=== PATIENT | male | born 1945 | race African-American/Black ===

== ENCOUNTER 2020-08-24 06:45 | Inpatient (IN) | payer OTHER ==
--- NOTE | 2019-09-06 19:30 | NUR ---
PATIENT ENDORSED IN PRONE POSITION TO UNSTABLE TO ROTATE IN SUPINE BLOOD PRESSURE WITH SUPPORT OF LEVOPHED DOCUMENTED , Addendum: 09/07/20 at 0835 by Agency Walter GREENE RN NO FEEDING STARTED STILL PRONE
[~2020-08-24] VITALS: Ht 180.3 cm; Wt 110.7 kg
[2020-08-24 06:45] VITALS: BP 133/72
--- NOTE | 2020-08-24 06:45 | NUR ---
75 Y/O MALE BIBA FROM HOME C/O SOB & FLU LIKE SYMPTOMS X 2 DAYS. PER EMS PT HAS BEEN PROGRESSIVELY HARDER TO BREATHE. ON SITE PT OXYGEN LEVEL 55% , PT PLACED ON CPAP ON SITE SAO2 66%. PT ABLE TO FOLLOW COMMANDS. A/O X 3, SLIGHT CONFUSION. RR EVEN AND LABORED, LUNG SOUNDS BL DIMINISHED. CAP REFIL < 3 SEC. PMH: HTN, DM NKA
--- NOTE | 2020-08-24 07:16 | NUR ---
BLOOD LABS & CULTURES COLLECTED. FLU & COVID BEA SWABS COLLECTED AND GIVEN TO LAB.
--- NOTE | 2020-08-24 07:20 | NUR ---
REPORT GIVEN TO RAMONA DOVER FOR CONTINUATION OF CARE.
--- NOTE | 2020-08-24 07:21 | NUR ---
Report reveived from RAMONA Ocampo for continuity of care
[2020-08-24] MEDS ORDERED: DEXAMETHASONE 10 MG/ML VIAL IVP ONE (07:35)
[2020-08-24] MEDS ORDERED: AZITHROMYCIN 500 MG in DEXTROSE 5% 250 ML IV ONE (07:35)
[2020-08-24] MEDS ORDERED: METF1000 PO (07:40)
[2020-08-24] MEDS ORDERED: SIMV10TA1 PO (07:40)
[2020-08-24] MEDS ORDERED: AMLO10TA PO (07:40)
[2020-08-24] MEDS ORDERED: TAMS0.4C97 PO (07:40)
[2020-08-24 08:09] LABS: BASOPHILS # (AUTO) 0.1 K/uL (0.00-0.22); BASOPHILS % (AUTO) 0.6 % (0.0-2.0); EOSINOPHILS % (AUTO) 0.1 % (0.0-4.0); HEMATOCRIT 44.5 % (36-52); HEMOGLOBIN 14.1 g/dL (12.0-18.0); LYMPHOCYTES # (AUTO) 1.6 K/uL (2.0-11.5); LYMPHOCYTES % (AUTO) 7.6 % (20.5-51.1); MEAN CORPUSCULAR HEMOGLOBIN 26 pg (27-31); MEAN CORPUSCULAR HGB CONC 32 g/dL (33-37); MEAN CORPUSCULAR VOLUME 83.2 fL (80-94); MONOCYTES % (AUTO) 5.1 % (1.7-9.3); NEUTROPHILS # (AUTO) 17.7 K/uL (1.8-7.7); NEUTROPHILS % (AUTO) 86.6 % (42.2-75.2); PLATELET COUNT (AUTO) 230 K/uL (140-450); RED BLOOD CELL COUNT(AUTO) 5.34 MIL/uL (4.20-6.10); RED CELL DISTRIBUTION WIDTH 14.8 % (11.6-13.7); WHITE BLOOD COUNT (AUTO) 20.5 K/uL (4.8-10.8)
[2020-08-24] MEDS ORDERED: AZITHROMYCIN 500 MG INJ VIAL IV ONE (08:14)
[2020-08-24] MEDS ORDERED: cefTRIAXone 1,000 MG VIAL ONE (08:15)
[2020-08-24 08:25] LABS: LACTATE DEHYDROGENASE 869 U/L (85-227)
[2020-08-24 08:26] LABS: PROTHROMBIN TIME 10.8 secs (10.8-13.4)
[2020-08-24 08:30] LABS: C-REACTIVE PROTEIN QUANT 52.4 mg/dL (0.0-0.9)
--- NOTE | 2020-08-24 08:30 | NUR ---
Dr. Membreno at bedside, will call RT for larger facem mask for BIPAP or adjustment
[2020-08-24 08:32] LABS: ALBUMIN 3.1 g/dL (3.4-5.0); ANION GAP 31.5 (8-16); ASPARTATE AMINOTRANSFERASE 51 U/L (15-37); CARBON DIOXIDE 16.4 mmol/L (21-32); CHLORIDE 102 mmol/L (98-107); GLUCOSE 264 mg/dL (74-106); POTASSIUM 4.9 mmol/L (3.5-5.1); SODIUM SERUM 145 mmol/L (136-145); TOTAL BILIRUBIN 0.6 mg/dL (0.0-1.0)
[2020-08-24 08:35] LABS: UREA NITROGEN, BLOOD 66 mg/dL (7-18)
[2020-08-24 08:36] LABS: CREATININE 4.9 mg/dL (0.6-1.3)
--- NOTE | 2020-08-24 08:36 | NUR ---
CRITICAL LAB REPORTS: BUN:66, CREAT 4.6, 12 Addendum: 08/24/20 at 0836 by [email or web address] CRITICAL LAB REPORTS: BUN:66, CREAT 4.6, 12 REPORTED TO KARLENE JIMENEZ
[2020-08-24 08:38] LABS: FIBRINOGEN 875 mg/dL (200-400)
--- NOTE | 2020-08-24 08:40 | NUR ---
RT Hedrick at bedside to adjust jonh's BIPAP face mask, O2 sat 77-83%. Patient breathing around the mask
[2020-08-24 08:50] LABS: D-DIMER > 5000 ng/ml (0-400)
[2020-08-24] MEDS ORDERED: NACL 0.9% 1,000 ML IV ONE ×2 (08:50→09:05)
--- NOTE | 2020-08-24 10:07 | NUR ---
Patient able to give urine sample, dipped, charted and sent to lab for UA and C&S
[2020-08-24] MEDS ORDERED: HYDROcodone/APAP 5/325 MG 1 TAB TAB PO PRN (11:20)
[2020-08-24] MEDS ORDERED: HEPARIN PER PHARMACY MC PRN (11:20)
[2020-08-24] MEDS ORDERED: POTASSIUM CHLORIDE 10 MEQ TABER PO PRN (11:20)
[2020-08-24] MEDS ORDERED: KCL 20 MEQ/WATER INJ PREMIX 200 ML IV PRN (11:20)
[2020-08-24] MEDS ORDERED: MAG SULF 2000 MG/WATER PREMIX 50 ML IV PRN (11:20)
[2020-08-24] MEDS ORDERED: MAGNESIUM OXIDE 400 MG TAB PO PRN (11:20)
[2020-08-24] MEDS ORDERED: ONDANSETRON 4 MG/2 ML VIAL IVP PRN (11:20)
[2020-08-24] MEDS ORDERED: NACL 0.9% 1,000 ML IV SCH (11:20)
[2020-08-24] MEDS ORDERED: MORPHINE SULFATE 4 MG/ML SYR IVP PRN (11:20)
[2020-08-24] MEDS ORDERED: ETOMIDATE 20 MG/10 ML VIAL IVP ONE (12:00)
--- NOTE | 2020-08-24 12:22 | NUR ---
Dr. Zapata is evaluating the patient at bedside.
[2020-08-24 12:38] LABS: APPEARANCE,URINE CLOUDY (CLEAR); BILIRUBIN,URINE 1+ (NEGATIVE); BLOOD, URINE NEGATIVE (NEGATIVE); COLOR,URINE YELLOW (YELLOW); LEUKOCYTE ESTERASE ,URINE NEGATIVE (NEGATIVE); NITRITE, URINE NEGATIVE (NEGATIVE); UGLUCOSE NEGATIVE (NEGATIVE)
[2020-08-24 12:59] LABS: RBC,URINE NONE SEEN /HPF (0-5)
[2020-08-24 13:00] LABS: URINE AMORPHOUS URATE 3+ /HPF (None Seen)
[2020-08-24] MEDS ORDERED: PIPERACILLIN/TAZOBACTAM 2.25 GM VIAL IV ONE (13:11)
--- NOTE | 2020-08-24 13:20 | NUR ---
Dr. Meneses is evaluating the patient at bedside.
[2020-08-24] MEDS: PIPERACILLIN/TAZOBACTAM 2.25 GM in DEXTROSE 5% 50 ML IV SCH ×2 (13:46→21:00)
--- NOTE | 2020-08-24 14:08 | NUR ---
CALLED DR. LAI WASHBURN [phone] TO REVIEW ABG SAMPLE REPORT LUCÍA (OFFICE) TO PAGE FOREMENTIONED CALL BACK NUMBER GIVEN [phone]
--- NOTE | 2020-08-24 14:32 | NUR ---
CALL BACK FROM DR. WASHBURN CALL TAKEN BY RADHA GERMAN TUTOR RESULTS GIVEN TO NO NEW ORDER
[2020-08-24] MEDS: SODIUM BICARBONATE 8.4% 50 MEQ in NACL 0.45% 1,000 ML IV SCH ×2 (14:45→21:29)
--- NOTE | 2020-08-24 15:28 | NUR ---
Returned call to patient's daughter Shivani Mendez [phone]
--- NOTE | 2020-08-24 15:47 | NUR ---
*FAMILY CONTACT* Louise Mendez [phone], updated re: patient's condition and plan PCP of patient Dr. Whittington In in [facility] [phone]
[2020-08-24] MEDS: hePARIN / DEXT 5% PREMIX 250 ML IV SCH (16:02)
--- NOTE | 2020-08-24 16:41 | NUR ---
Dr. Ruiz returned call, re: patient O2 sat contistantly at 77-82& Addendum: 08/24/20 at [email or web address] Ruiz stated he would call Dr. Meneses and have him address issue and possibly intubate
--- NOTE | 2020-08-24 16:45 | NUR ---
Robert genao in ED - 08/24/20 at [email or web address] Ruggiero took patient off O2 to see response
--- NOTE | 2020-08-24 17:01 | NUR ---
Patient given Morphine 4mg IVP for sedation and dyspnea
[2020-08-24] MEDS ORDERED: DEXMEDETOMIDINE HCL 200 MCG in NACL 0.9% 48 ML IV PRN (17:05)
--- NOTE | 2020-08-24 17:07 | NUR ---
Robert genao in [facility] - 08/24/20 at 1715 by [email or web address] Patient off O2, O2 sat on room air 92-93%
[2020-08-24] MEDS ORDERED: DEXMEDETOMIDINE HCL 400 MCG in NACL 0.9% 96 ML IV PRN (17:30)
--- NOTE | 2020-08-24 17:50 | NUR ---
#16F mascorro catheter placed, patient tolerated well. Pulled up in bed and changed into gown O2 sat 87-89%
--- NOTE | 2020-08-24 18:32 | NUR ---
Patient resting comfortably, HOB elevated 90. Resp even and unlabored, O2 sat 96-97%. F/C draining well, VVS, sinus rhythm-ST
--- NOTE | 2020-08-24 19:10 | NUR ---
Detailed report given to RAMONA Weathers for plant operator/shift supervisor. Questions answered, meds and orders reviewed.
[2020-08-24] MEDS ORDERED: DEXTROSE 50% 50 ML SYR IVP PRN (19:25)
--- NOTE | 2020-08-24 19:30 | NUR ---
REPORT RECEIVED FROM REBAR WORKER RAY AND ASSUMED CARE.
[2020-08-24] MEDS: ASCORBIC ACID 500 MG TAB PO SCH (21:00)
[2020-08-24] MEDS: BLOOD GLUCOSE MONITORING 1 DEV DEV FS SCH (21:00)
--- NOTE | 2020-08-24 22:00 | NUR ---
PT REQUESTED WATER. PT WAS ABLE TO DRINK WATER WITH NO ISSUES.
--- NOTE | 2020-08-24 22:10 | NUR ---
LAB AT BEDSIDE DRAWING LABS FOR PT
[2020-08-24] MEDS ORDERED: PIPERACILLIN/TAZOBACTAM 3.375 GM VIAL IV ONE (22:57)
--- NOTE | 2020-08-25 00:21 | NUR ---
PT STARTED TO DESAT. BIPAP MASK WAS NOT ON PROPERLY. ASSISTED PT TO A COMFORTABLE FIT. O2 LEVELS CAME UP.
--- NOTE | 2020-08-25 02:14 | NUR ---
PT RESTING IN BED WITH FLUIDS RUNNING PER MD ORDERS. CHEST RISE AND FALL SYMMETRICAL. VSS. PT ON BIPAP
--- NOTE | 2020-08-25 04:59 | NUR ---
PT IN BED AT THIS TIME. NO DISTRESS NOTED. BIPAP MASK ON, O2 LEVELS AT 98%. SIDE RAILS UP AND BED IN LOWEST POSITION FOR SAFETY
[2020-08-25] MEDS: PIPERACILLIN/TAZOBACTAM 2.25 GM in DEXTROSE 5% 50 ML IV SCH ×3 (05:00→22:20)
[2020-08-25 05:54] LABS: HEMATOCRIT 39.2 % (36-52); HEMOGLOBIN 12.7 g/dL (12.0-18.0); LYMPHOCYTES # (AUTO) 0.6 K/uL (2.0-11.5); LYMPHOCYTES % (AUTO) 2.8 % (20.5-51.1); MEAN CORPUSCULAR HEMOGLOBIN 26 pg (27-31); MEAN CORPUSCULAR HGB CONC 32 g/dL (33-37); MEAN CORPUSCULAR VOLUME 80.8 fL (80-94); MONOCYTES # (AUTO) 1.1 K/uL (0.8-1.0); MONOCYTES % (AUTO) 5.5 % (1.7-9.3); NEUTROPHILS # (AUTO) 18.2 K/uL (1.8-7.7); NEUTROPHILS % (AUTO) 91.7 % (42.2-75.2); PLATELET COUNT (AUTO) 226 K/uL (140-450); RED BLOOD CELL COUNT(AUTO) 4.85 MIL/uL (4.20-6.10); RED CELL DISTRIBUTION WIDTH 14.4 % (11.6-13.7); WHITE BLOOD COUNT (AUTO) 19.9 K/uL (4.8-10.8)
[2020-08-25 06:04] LABS: ALBUMIN 2.4 g/dL (3.4-5.0); ANION GAP 18.5 (8-16); ASPARTATE AMINOTRANSFERASE 52 U/L (15-37); CARBON DIOXIDE 24.5 mmol/L (21-32); CHLORIDE 110 mmol/L (98-107); CHOL/HDL RATIO 3.4 (1-4.5); CREATININE 2.7 mg/dL (0.6-1.3); GLUCOSE 254 mg/dL (74-106); HDL CHOLESTEROL 39 mg/dL (40-60); LDL (CALC) 63 mg/dL (60-100); SODIUM SERUM 148 mmol/L (136-145); TOTAL BILIRUBIN 0.4 mg/dL (0.0-1.0); TRIGLYCERIDES 151 mg/dL (30-150); UREA NITROGEN, BLOOD 60 mg/dL (7-18)
--- NOTE | 2020-08-25 06:11 | NUR ---
PTT 56.5-PRIMARY NURSE EDWARD NOTIFIED-WILL FOLLOW HEPARIN PROTOCOL- NO CHANGE TO HEPARIN DRIP NEEDED PER HEPARIN PROTOCOL
[2020-08-25] MEDS ORDERED: SODIUM BICARBONATE 8.4% PFS 50 MEQ/50 ML SYR IVP ONE ×2 (06:16→06:18)
[2020-08-25] MEDS: SODIUM BICARBONATE 8.4% 50 MEQ in NACL 0.45% 1,000 ML IV SCH (06:42)
[2020-08-25] MEDS: BLOOD GLUCOSE MONITORING 1 DEV DEV FS SCH ×4 (06:44→22:19)
--- NOTE | 2020-08-25 07:30 | NUR ---
RECEIVED REPORT FROM RAMONA LEON.
--- NOTE | 2020-08-25 07:40 | NUR ---
PT REPOSITIONED UP BED INTO POSITION OF COMFORT. FACIAL CARE PROVIDED. EQUAL CHEST RISE AND FALL. BED LOCKED AT LOWEST POSITION. SIDE RAILS X2. CALL LIGHT WITHIN REACH.
[2020-08-25] MEDS: DOCUSATE SODIUM 100 MG GELCAP PO SCH (08:47)
--- NOTE | 2020-08-25 09:00 | NUR ---
1200ML OF EDWARD URINE REMOVED AND DISCARDED FROM CATHETER BAG
[2020-08-25] MEDS: DEXAMETHASONE 4 MG/ML VIAL IVP SCH (09:04)
[2020-08-25] MEDS: ASCORBIC ACID 500 MG TAB PO SCH ×2 (09:05→22:20)
--- NOTE | 2020-08-25 10:04 | NUR ---
PATIENT HAS BEEN SCREENED AND CATEGORIZED MODERATE NUTRITION RISK. PATIENT WILL BE SEEN WITHIN 3-5 DAYS OF ADMISSION. 08/27/20-08/29/[address]
--- NOTE | 2020-08-25 10:31 | NUR ---
PT REPOSITIONED IN BED IN HIGH FOWLERS POSITION. BEDSIDE MONITOR IN PLACE. BED LOCKED AND IN LOWEST POSITION. SIDE RAILS X2.
--- NOTE | 2020-08-25 10:49 | NUR ---
RT AND LAB AT BEDSIDE
[2020-08-25 10:50] VITALS: BP 123/71
[2020-08-25] MEDS: INSULIN LISPRO SLIDING SCALE 100 UNITS/ML VIAL SUBQ PRN ×2 (12:34→17:30)
[2020-08-25] MEDS: NACL 0.45% 1,000 ML IV SCH (12:56)
--- NOTE | 2020-08-25 12:58 | NUR ---
PT REPOSITIONED IN BED. GIVEN ORANGE JUICE PER REQUEST. FACE CLEANED WITH MOIST WASHCLOTH. MANAGER MOTOR IN PLACE, BED LOCKED AND IN LOWEST POSITON. SIDE RAILS X2. CALL LIGHT IN REACH. ALL PT NEEDS MET AT THIS TIME.
[2020-08-25] MEDS ORDERED: PIPERACILLIN/TAZOBACTAM 2.25 GM VIAL IV ONE ×2 (13:11→22:04)
--- NOTE | 2020-08-25 13:30 | NUR ---
PTT NOW 48.9, NO CHANGE IN HEPARIN DRIP MADE.
--- NOTE | 2020-08-25 14:25 | NUR ---
RT AT BEDSIDE FOR O2 DESAT.
--- NOTE | 2020-08-25 14:30 | NUR ---
PT REPOSITIONED IN BED WITH BIPAP IN PLACE. PHYSICIAN INDUSTRIAL/PULSE OX IN PLACE. BED LOCKED AND IN LOWEST POSITION. SIDE RAILS X2. CALL LIGHT IN REACH.
[2020-08-25 15:30] VITALS: BP 115/68
--- NOTE | 2020-08-25 15:34 | NUR ---
SPOKE WITH DR. SCHULTE REGARDING PRN ATIVAN FOR ANXIETY.
--- NOTE | 2020-08-25 15:36 | NUR ---
SOCIAL WORK NOTE: SW WAS UNABLE TO MEET PATIENT AT BEDSIDE DUE TO MEDICAL CONDITION. [facility] CONTACTED EMERGENCY CONTACT TALYA [phone] AND LEFT VM TO COMPLETE ASSESSMENT. Addendum: 08/26/20 at 1050 by Antony English SS Patient's Orientation Unable To Assess Information Provided By MAREK HANSEN - / TALYA MAR - DAUGHTER Comments SW WAS UNABLE TO MEET PATIENT AT BEDSIDE DUE TO MEDICAL CONDITION. SW COMPLETED ASSESSMENT WITH PATIENT'S AND DAUGHTER TELEPHONICALLY. Rock Lather, Realtionship and Phone Number MAREK HANSEN [phone] TALYA MAR DAUGHTER [phone] Healthcare Power of Trichologist No Does Patient Have a POLST No Identifying Problems No Social Work Triggers Is A Social Work Consult Needed No Mandate Report Filed No Explanation Of Identifying Problems PATIENT IS A 75-YEAR-OLD MALEADMITTED FOR COVID, PNEUMONIA, AND SEPSIS. PATIENT HAS PMHX OF HTN, DM, AND BPH. FAMILY REPORTS NO HISTORY OF SUBSTANCE ABUSE OR MENTAL HEALTH. Admitted From Home Pre-Admission Level Of Functioning Status Independent/Ambulatory Prior Resources/Services Used In Last 12 Months No Prior Resources Used Prior DME No Prior DME Used Dialysis Comments N/A Living Situation Lives With Family House Patient Had Caregiver No Home Support No Caregiver Issues Financial Issues No Known Financial Issue Referral To The Financial Counselor Needed Yes Factors/Needs No D/C Needs Identified Pt/Rep Participated In Discharge Plan Yes Patient/Family Agress With Discharge Plan Yes Discharge Plan Comments TENTATIVE DISCHARGE PLAN IS FOR PATIENT TO RETURN HOME. DC Plan Status Initiated
[2020-08-25] MEDS ORDERED: INTUBATION KIT MC ONE (15:56)
--- NOTE | 2020-08-25 16:30 | NUR ---
ORDER PICKER DR. WEBSTER MADE AWARE OF PTS PERSISTENT DESATS ON BIPAP MACHINE DUE TO RESTLESSNESS/ANXIETY. DR. KEENAN STATED TO GIVE PRN PRECEDEX DRIP FOR PTS ANXIETY.
--- NOTE | 2020-08-25 17:36 | NUR ---
PAGED DR. KEENAN TO MAKE AWARE THAT PT IS 75%-80% ON BIPAP MACHINE WITH PRECEDEX DRIP.
[2020-08-25] MEDS ORDERED: LORazepam 2 MG/ML VIAL ONE (17:42)
--- NOTE | 2020-08-25 17:42 | NUR ---
PT DESAT TO 28% ON BIPAP, ERMD DR. JIMENEZ AND RT AT BEDSIDE FOR RAPID RESPONSE INTUBATION. SEE EMAR FOR MEDICATION ADMINISTRATION.
--- NOTE | 2020-08-25 17:42 | NUR ---
Note undone in [facility] - 08/25/20 at 1944 by [email or web address] PT DESAT TO 28% ON BIPAP, KARLENE JIMENEZ AT BEDSIDE FOR RAPID RESPONSE INTUBATION. Addendum: 08/25/20 at 1816 by [email or web address] Amendment undone in [facility] - 08/25/20 at 1820 by [email or web address] PT DESAT TO 28% ON BIPAP, KARLENE JIMENEZ AND RT AT BEDSIDE FOR RAPID RESPONSE INTUBATION. SEE EMAR FOR MEDICATION ADMINISTRATION.
[2020-08-25] MEDS ORDERED: fentaNYL citrate 0.05 MG/ML VIAL ONE ×2 (17:43→18:09)
[2020-08-25] MEDS ORDERED: PROPOFOL 1000 MG/100 ML PREMIX 100 ML IV ONE (17:43)
--- NOTE | 2020-08-25 17:47 | NUR ---
PT INTUBATED WITH 7.5 INTUBATION TUBE, 26" AT THE LIP
[2020-08-25 17:50] VITALS: BP 164/86
--- NOTE | 2020-08-25 17:57 | NUR ---
OG TUBE PLACED PER ERMD VERBAL ORDER
--- NOTE | 2020-08-25 17:59 | NUR ---
RAD AT BEDSIDE FOR ET AND OG TUBE PLACEMENT VERIFICATION
--- NOTE | 2020-08-25 18:00 | NUR ---
PT HEPARIN DRIP STOPPED DUE TO PROPOFOL RUNNING
--- NOTE | 2020-08-25 18:10 | NUR ---
PUT PAGE OUT TO PTS DOCTOR TO NOTIFY OF INTUBATION.
[2020-08-25] MEDS ORDERED: LORazepam 2 MG/ML VIAL IVP STA (18:34)
[2020-08-25] MEDS ORDERED: PROPOFOL 1000 MG/100 ML PREMIX 100 ML IV STA (18:34)
[2020-08-25] MEDS ORDERED: SUCCINYLCHOLINE CHLORIDE 200 MG/10 ML VIAL IVP ONE (18:35)
[2020-08-25] MEDS ORDERED: fentaNYL citrate 0.05 MG/ML VIAL IVP ONE ×2 (18:35)
[2020-08-25] MEDS ORDERED: ETOMIDATE 20 MG/10 ML VIAL IVP ONE (18:35)
[2020-08-25] MEDS ORDERED: NACL 0.9% 1,000 ML IV ONE (18:35)
--- NOTE | 2020-08-25 18:45 | NUR ---
RECIEVED A CALL FROM DR. LORENZ. NOTFIED HIM THAT PT IS INTUBATED AND PTS FAMILY NEEDS TO BE INFORMED. CONTACT INFORMATION FOR FAMILY PROVIDED. DR. LORENZ GAVE VERBAL ORDER TO GET REPEAT ABG.
--- NOTE | 2020-08-25 19:15 | NUR ---
REPORT GIVEN TO RAMONA PEREZ. TRANSFER OF CARE AT THIS TIME.
[2020-08-25 19:30] VITALS: BP 94/58
--- NOTE | 2020-08-25 19:30 | NUR ---
RECEIVED PT IN ER ON VENT PC 24, R 18, PEEP 14, FIO2 100%. PT INTUBATED WITH ETT 7.5 SECURED WITH ANCHOR FAST @ 28Cm @ LIP.TOLERATING WELL WITHOUT ADVERSE REACTION NOTED. PT HAS GOOD CHEST RISE AND FALL, AIRWAY PATENT. VENTILATOR PLUGGED INTO THE RED OUTLET, AMBU BAG @ BEDSIDE. WILL CONTINUE TO MONITOR.
--- NOTE | 2020-08-25 20:05 | NUR ---
TITRATED PROPOFOL TO 15MCH/KG/HR. RASS SCORE IS -2.
--- NOTE | 2020-08-25 20:17 | NUR ---
RT AT BEDSIDE.
--- NOTE | 2020-08-25 20:25 | NUR ---
TALYA (DAUGHTER) GAVE OVER THE PHONE CONSENT TO PLACE CENTRAL LINE IF NEEDED.
--- NOTE | 2020-08-25 20:28 | NUR ---
UNABLE TO GET BLOOD GAS, LET ANOTHER RT TRY UNSUCCESSFUL. WILL TRY AGAIN IN LATER TIME.
[2020-08-25] MEDS ORDERED: CRUSHER, PILL MC ONE (22:18)
--- NOTE | 2020-08-25 23:18 | NUR ---
INCREASED HEPARIN DRIP PER PROTOCOL PARAMETERS. PTT IS 40.6
--- NOTE | 2020-08-25 23:58 | NUR ---
PT CHANGED, SUCTIONED, AND REPOSITIONED.
[2020-08-26] MEDS ORDERED: PROPOFOL 1000 MG/100 ML PREMIX 100 ML IV ONE ×3 (00:37→11:26)
[2020-08-26 00:46] VITALS: BP 94/56
[2020-08-26] MEDS: NACL 0.45% 1,000 ML IV SCH ×2 (00:56→14:09)
--- NOTE | 2020-08-26 01:08 | NUR ---
SECOND PROPOFOL STARTED. RATE REMAINS AT 20MCG/KG/HR.
--- NOTE | 2020-08-26 02:34 | NUR ---
PT REPOSITIONED AND CHANGED. INCREASED PROPOFOL DRIP.
--- NOTE | 2020-08-26 04:15 | NUR ---
RT AT BESIDE. PT SUCTIONED.
[2020-08-26 04:30] VITALS: BP 96/60
[2020-08-26] MEDS ORDERED: PIPERACILLIN/TAZOBACTAM 2.25 GM VIAL IV ONE ×3 (05:08→19:47)
[2020-08-26] MEDS: PIPERACILLIN/TAZOBACTAM 2.25 GM in DEXTROSE 5% 50 ML IV SCH ×3 (05:15→20:47)
[2020-08-26 05:57] LABS: BASOPHILS # (AUTO) 0.1 K/uL (0.00-0.22); BASOPHILS % (AUTO) 0.4 % (0.0-2.0); HEMATOCRIT 33.5 % (36-52); HEMOGLOBIN 10.9 g/dL (12.0-18.0); LYMPHOCYTES # (AUTO) 0.4 K/uL (2.0-11.5); MEAN CORPUSCULAR HEMOGLOBIN 26 pg (27-31); MEAN CORPUSCULAR HGB CONC 32 g/dL (33-37); MEAN CORPUSCULAR VOLUME 80.6 fL (80-94); MONOCYTES # (AUTO) 0.6 K/uL (0.8-1.0); MONOCYTES % (AUTO) 2.9 % (1.7-9.3); NEUTROPHILS # (AUTO) 20.6 K/uL (1.8-7.7); NEUTROPHILS % (AUTO) 94.7 % (42.2-75.2); PLATELET COUNT (AUTO) 206 K/uL (140-450); RED BLOOD CELL COUNT(AUTO) 4.16 MIL/uL (4.20-6.10); RED CELL DISTRIBUTION WIDTH 14.5 % (11.6-13.7); WHITE BLOOD COUNT (AUTO) 21.8 K/uL (4.8-10.8)
[2020-08-26 06:24] LABS: ALBUMIN 1.9 g/dL (3.4-5.0); ANION GAP 14.4 (8-16); ASPARTATE AMINOTRANSFERASE 63 U/L (15-37); CHLORIDE 113 mmol/L (98-107); CREATININE 2.7 mg/dL (0.6-1.3); GLUCOSE 229 mg/dL (74-106); MAGNESIUM 3.1 mg/dL (1.8-2.4); POTASSIUM 5.4 mmol/L (3.5-5.1); SODIUM SERUM 149 mmol/L (136-145); TOTAL BILIRUBIN 0.5 mg/dL (0.0-1.0)
[2020-08-26 06:27] LABS: UREA NITROGEN, BLOOD 65 mg/dL (7-18)
--- NOTE | 2020-08-26 06:46 | NUR ---
PT REPOSITIONED, CHANGED, SUCTIONED, AND STARTED THIRD BAG OF PROPOFOL. INCREASED RATE TO 30MCG/KG/HR.
--- NOTE | 2020-08-26 06:51 | NUR ---
HEPARIN DRIP DECREASED.
--- NOTE | 2020-08-26 07:18 | NUR ---
gave report to julian schwab. transfer of care at this time.
[2020-08-26] MEDS: BLOOD GLUCOSE MONITORING 1 DEV DEV FS SCH ×4 (07:30→20:47)
[2020-08-26 07:39] VITALS: BP 92/58
[2020-08-26] MEDS: DEXAMETHASONE 4 MG/ML VIAL IVP SCH (08:54)
[2020-08-26] MEDS: DOCUSATE SODIUM 100 MG GELCAP PO SCH (09:05)
[2020-08-26] MEDS: ASCORBIC ACID 500 MG TAB PO SCH ×2 (09:06→20:48)
[2020-08-26 10:12] VITALS: BP 92/62
--- NOTE | 2020-08-26 12:54 | NUR ---
1000 ML DARK YELLOW URINE REMOVED VIA SHETH CATHETER.
--- NOTE | 2020-08-26 13:00 | NUR ---
PT REPOSITIONED TURNED TO RIGHT SIDE. PT ASSISTED INTO POSITION OF COMFORT.
--- NOTE | 2020-08-26 13:50 | NUR ---
Stable. VSS. Intubated. On [facility] Vent AV mode with 100% 02. Sat running around 90%. Continues on Heparin GTT at 1400U Q HR PTT recently drawn and adjustment will be made. Awaiting bed in ICU
[2020-08-26] MEDS ORDERED: FUROSEMIDE 40 MG/4 ML VIAL IVP SCH (15:00)
[2020-08-26] MEDS: SODIUM ZIRCONIUM CYCLOSILICATE 10 GM POWD.PACK NG SCH ×2 (15:05→20:47)
--- NOTE | 2020-08-26 16:00 | NUR ---
Spoke to DR Jolene Meneses about BP and sedation. Said I could start Levophed as needed and that he would put order in for Change in sedation.
--- NOTE | 2020-08-26 19:30 | NUR ---
RECEIEVED REPORT FROM DONNA GREENE FOR CONTINUITY OF CARE
--- NOTE | 2020-08-26 19:31 | NUR ---
PT ETT TO VENT. SEDATED RASS -3. IV SITES RAC 20G, RHAND 20G, LHAND 22, INTACT, PATENT, GOOD BLOOD RETURN. INFUSING PROPOFOL 30 MCG/KG/MIN, PRECEDEX DRIP, HEPARIN 1400 UNITS, NS 0.45% 60 ML/HR. OGT IN PLACE. SKIN WARM AND DRY. SHETH CATHETER IN PLACE.
[2020-08-26] MEDS: PROPOFOL 1000 MG/100 ML PREMIX 100 ML IV PRN (19:36)
--- NOTE | 2020-08-26 20:00 | NUR ---
RECEIVED CALL FROM PT'S AND DAUGHTER. UPDATED ON PT STATUS. ALL QUESTIONS AND CONCERNS ANSWERED AT THIS TIME.
[2020-08-26] MEDS ORDERED: NOREPINEPHRINE 8 MG in DEXTROSE 5% 250 ML IV PRN (20:10)
[2020-08-26] MEDS: INSULIN LISPRO SLIDING SCALE 100 UNITS/ML VIAL SUBQ PRN (20:39)
[2020-08-26 20:59] VITALS: BP 106/64
--- NOTE | 2020-08-26 20:59 | NUR ---
RECEIVED PATIENT FROM AM SHIFT. PATIENT WAS SEEN AND ASSESSED. PATIENT IS INTUBATED WITH ETT SIZE 7.5 AND SECURED WITH ANCHOR-FAST AT 27cm. PATIENT IS ON VENT SETTINGS: PC 24, RR 18, PEEP 16, FiO2 100% WITH SPO2 OF 98%. VENT IS PLUGGED IN RED OUTLET. AMBU BAG AT BEDSIDE. VENT ALARMS SET AND AUDIBLE TO ENVIRONMENT. SUCTIONED SMALL AMOUNT OF WHITE THICK SECRETIONS FROM ETT. AIRWAY IS PATENT. AUSCULTATION REVEALS BILATERAL COARSE BREATH SOUNDS. PATIENT IS IN NO APPARENT RESPIRATORY DISTRESS AT THIS TIME. WILL CONTINUE TO MONITOR PATIENT.
--- NOTE | 2020-08-26 21:00 | NUR ---
BLOOD SUGAR 246. 4 UNITS OF HUMALOG GIVEN
--- NOTE | 2020-08-26 21:04 | NUR ---
RECEIVED CALL FROM PT'S DAUGHTER GIOVANNI. UPDATED ON PT STATUS. ALL QUESTIONS AND CONCERNS ANSWERED AT THIS TIME.
--- NOTE | 2020-08-26 21:04 | NUR ---
S/W GIOVANNI, PT'S DAUGHTER. REQUESTING TO [facility] WITH THE PATIENT. STATED SHE WILL BRING A PHONE TO [facility] AT APPROX 0900 TOMORROW
[2020-08-26] MEDS: fentaNYL citrate 1 MG in NACL 0.9% 80 ML IV PRN (23:47)
--- NOTE | 2020-08-26 23:47 | NUR ---
HELD PRECEDEX. HUNG NEW BAG OF FENTANYL. RASS -3. WILL CONTINUE TO MONITOR.
[2020-08-27] MEDS ORDERED: fentaNYL citrate 1 MG in NACL 0.9% 80 ML IV PRN (00:25)
--- NOTE | 2020-08-27 00:30 | NUR ---
LAB AT BEDSIDE
[2020-08-27] MEDS: PROPOFOL 1000 MG/100 ML PREMIX 100 ML IV PRN ×6 (01:09→23:14)
--- NOTE | 2020-08-27 01:53 | NUR ---
PTT 59.7. HEPARIN DRIP REMAINS AT 1400 UNITS.
[2020-08-27 02:57] VITALS: BP 96/53
--- NOTE | 2020-08-27 03:17 | NUR ---
PT SEDATED, RASS -3. RESPIRATIONS EVEN AND UNLABORED. CHEST RISE IS SYMMETRICAL. WILL CONTINUE TO MONITOR. SAFETY PRECAUTIONS IN PLACE.
[2020-08-27] MEDS: hePARIN / DEXT 5% PREMIX 250 ML IV SCH ×2 (03:56→23:30)
[2020-08-27] MEDS ORDERED: PIPERACILLIN/TAZOBACTAM 2.25 GM VIAL IV ONE ×3 (04:48→21:07)
[2020-08-27] MEDS: PIPERACILLIN/TAZOBACTAM 2.25 GM in DEXTROSE 5% 50 ML IV SCH ×3 (05:06→21:00)
[2020-08-27] MEDS: SODIUM ZIRCONIUM CYCLOSILICATE 10 GM POWD.PACK NG SCH ×3 (05:06→17:47)
[2020-08-27] MEDS: NACL 0.45% 1,000 ML IV SCH ×2 (05:35→23:13)
--- NOTE | 2020-08-27 05:54 | NUR ---
LAB AT BEDSIDE
--- NOTE | 2020-08-27 06:50 | NUR ---
EMPITED OUT SHETH CATHETER, 700 ML OF YELLOW URINE OUTPUT
--- NOTE | 2020-08-27 07:15 | NUR ---
REPORT GIVEN TO DIONICIO GREENE FOR CONTINUITY OF CARE
[2020-08-27 07:30] LABS: ALBUMIN 1.8 g/dL (3.4-5.0); ANION GAP 16.5 (8-16); ASPARTATE AMINOTRANSFERASE 37 U/L (15-37); CARBON DIOXIDE 23.7 mmol/L (21-32); CHLORIDE 108 mmol/L (98-107); CREATININE 3.3 mg/dL (0.6-1.3); GLUCOSE 258 mg/dL (74-106); SODIUM SERUM 142 mmol/L (136-145); TOTAL BILIRUBIN 0.5 mg/dL (0.0-1.0)
[2020-08-27 07:59] VITALS: BP 95/53
--- NOTE | 2020-08-27 07:59 | NUR ---
RECEIVED ON A VIASYS HECTOR VENTILATOR PLUGGED INTO RED OUTLET TOLERATING WELL WITHOUT ADVERSE REACTIONS NOTED TO AN ENDOTRACHEAL TUBE #7.5 SECURED AT 26cm TEETH/GUM LINE WITH AN ANCHOR FAST CUFF PRESSURE CHECKED NOTED AMBU BAG AT BEDSIDE LOC SEDATED RESTING WELL EQUAL CHEST RISE GOOD AERATION THROUGHOUT BILATERAL LUNG LIANG AIRWAY PATENT
--- NOTE | 2020-08-27 07:59 | NUR ---
SATURATION 100% ON FIO2 OF 100% PEEP [id number] TITRATED FIO2 TO 95% DIONICIO/ASSISTANT DEPARTMENT MANAGER NOTIFIED
[2020-08-27 08:49] LABS: POTASSIUM 6.2 mmol/L (3.5-5.1); UREA NITROGEN, BLOOD 81 mg/dL (7-18)
[2020-08-27] MEDS ORDERED: CRUSHER, PILL MC ONE (08:49)
[2020-08-27] MEDS ORDERED: PANTOPRAZOLE 40 MG INJ VIAL IVP SCH (09:00)
[2020-08-27] MEDS: BLOOD GLUCOSE MONITORING 1 DEV DEV FS SCH ×4 (09:00→21:00)
[2020-08-27] MEDS: DEXAMETHASONE 4 MG/ML VIAL IVP SCH (09:19)
[2020-08-27] MEDS: DOCUSATE SODIUM 100 MG GELCAP PO SCH (09:21)
[2020-08-27] MEDS: ASCORBIC ACID 500 MG TAB PO SCH ×2 (09:21→21:00)
[2020-08-27 09:24] VITALS: BP 107/71
--- NOTE | 2020-08-27 09:24 | NUR ---
NO EVIDENCE OF PULMONARY DISTRESS NOTED GOOD CHEST RISE AIRWAY PATENT SATURATION 100% ON FIO2 OF 95% PEEP [id number] TITRATED FIO2 TO 90% DIONICIO/CLINICAL ATHLETIC INSTRUCTOR NOTIFIED
[2020-08-27] MEDS: INSULIN LISPRO SLIDING SCALE 100 UNITS/ML VIAL SUBQ PRN ×2 (09:31→16:35)
--- NOTE | 2020-08-27 09:33 | NUR ---
ORALLY INTUBATED 7.5 ETT TUBE 26CM TEETH, OG TUBE PRESENT, PC 24 RATE 18 16 PEEP AND NOW 90% FIO2, PROPOFOL 30MCG/KG/MIN, FENTANYL AT 25 MCG/HR, HEPARIN AT 1400 UNITS PER HOUR 1/2 NS AT 60CC/HR. PTT 65 NO CHANGE ON HEP GTT. REMAINS SEDATED RASS -3. SHETH DRAINING CLEAR YELLOW URINE 10ML NOW IN BAG. LUNGS ARE CTA BILAT DISTAL PULSES PALPABLE.
--- NOTE | 2020-08-27 10:20 | NUR ---
FIO2 AT 90% VSS
[2020-08-27] MEDS ORDERED: DOPPLER MC ONE (10:39)
[2020-08-27 10:51] LABS: BASOPHILS # (AUTO) 0.1 K/uL (0.00-0.22); BASOPHILS % (AUTO) 0.5 % (0.0-2.0); EOSINOPHILS # (AUTO) 0.5 K/uL (0-0.4); EOSINOPHILS % (AUTO) 2.6 % (0.0-4.0); HEMATOCRIT 31.9 % (36-52); HEMOGLOBIN 11.2 g/dL (12.0-18.0); LYMPHOCYTES # (AUTO) 0.7 K/uL (2.0-11.5); LYMPHOCYTES % (AUTO) 3.9 % (20.5-51.1); MEAN CORPUSCULAR HEMOGLOBIN 29 pg (27-31); MEAN CORPUSCULAR HGB CONC 35 g/dL (33-37); MEAN CORPUSCULAR VOLUME 82.7 fL (80-94); MONOCYTES # (AUTO) 0.8 K/uL (0.8-1.0); MONOCYTES % (AUTO) 4.5 % (1.7-9.3); NEUTROPHILS # (AUTO) 15.8 K/uL (1.8-7.7); NEUTROPHILS % (AUTO) 88.5 % (42.2-75.2); PLATELET COUNT (AUTO) 569 K/uL (140-450); RED BLOOD CELL COUNT(AUTO) 3.85 MIL/uL (4.20-6.10); RED CELL DISTRIBUTION WIDTH 15.4 % (11.6-13.7); WHITE BLOOD COUNT (AUTO) 17.9 K/uL (4.8-10.8)
[2020-08-27 14:10] VITALS: BP 97/60
--- NOTE | 2020-08-27 14:24 | NUR ---
SPOKE TO MAREK HANSEN PTS GAVE VERBAL CONSENT OVER PHONE FOR PICC LINE INSERTION
--- NOTE | 2020-08-27 14:49 | NUR ---
PTT 59.1 NO CHANGE TO HEP GTT REMAINS AT 1400 UNITS PER HOUR.
[2020-08-27] MEDS ORDERED: CALCIUM GLUCONATE 10% 1,000 MG in NACL 0.9% 50 ML IV SCH (15:55)
[2020-08-27] MEDS: ALBUMIN HUMAN 25% 100 ML IV SCH (16:49)
--- NOTE | 2020-08-27 17:48 | NUR ---
400CC URINE OUT PUT
[2020-08-27] MEDS: SODIUM ZIRCONIUM CYCLOSILICATE 10 GM POWD.PACK PO SCH (18:00)
[2020-08-27 18:35] LABS: ANION GAP 15.8 (8-16); CARBON DIOXIDE 24.8 mmol/L (21-32); CHLORIDE 108 mmol/L (98-107); CREATININE 3.4 mg/dL (0.6-1.3); GLUCOSE 246 mg/dL (74-106); POTASSIUM 5.6 mmol/L (3.5-5.1); SODIUM SERUM 143 mmol/L (136-145)
[2020-08-27 18:47] LABS: UREA NITROGEN, BLOOD 92 mg/dL (7-18)
--- NOTE | 2020-08-27 19:10 | NUR ---
PICC LINE NURSE AT BEDSIDE FOR LINE INSERTION.
--- NOTE | 2020-08-27 19:15 | NUR ---
RECEIVED REPORT FROM DIONICIO GREENE FOR CONTINUITY OF CARE.
--- NOTE | 2020-08-27 19:58 | NUR ---
PICC LINE X-RAY READS, "Interval placement of right arm PICC line with tip near cavoatrial junction" AND PER PICC LINE NURSE PLACEMENT IS VERIFIED.
--- NOTE | 2020-08-27 20:00 | NUR ---
SEE IV SPREADSHEET FOR V/S.
--- NOTE | 2020-08-27 20:18 | NUR ---
NEW PROPOFOL BOTTLE HUNG AT THIS TIME.
--- NOTE | 2020-08-27 20:45 | NUR ---
PT LAYING IN BED. ORALLY INTUBATED WITH ET TUBE SIZE 7.5 AT 26 AT THE TEETH. VENT SETTINGS: AC MODE, RATE 18, 560 VT, 40 PEAK, 16 PEEP AT 80% FIO2. PROPOFOL RUNNING AT 30 MCG/KG/MIN, HEPARIN AT 1400 UNITS AND 25 MCG OF FENTANYL. WITH A GOAL OF RASS OF -3. ON CARDAIC MONITORING, BP MONITORING AND PULSE OXIMETRY. WILL CONTINUE TO MONITOR
[2020-08-27 20:48] VITALS: BP 140/67
--- NOTE | 2020-08-27 20:48 | NUR ---
RECEIVED PATIENT FROM DAY SHIFT ON DOCUMENTED VENT SETTINGS. VENT PLUGGED INTO RED OUTLET. BMV AT BEDSIDE.ETT SECURED. ALARMS SET AND AUDIBLE. SX SMALL AMOUNT OF SECRETION. WILL CONT TO MONITOR
--- NOTE | 2020-08-27 21:00 | NUR ---
INCREASED PROPOFOL DRIP AND FENTANYL DRIP TO REACH RASS OF -3. PT WAS NOTED WITH MOVEMENTS TO EXTREMITIES. WILL TITRATE TO ACHIEVE GOAL. WILL CONTINUE TO MONITOR.
--- NOTE | 2020-08-27 21:35 | NUR ---
PROPOFOL AT 50MCG/KG/MIN & FENTANYL SET AT 27 MCG/KG/HR. RASS OF -3 ACHIEVED AT THIS TIME.
--- NOTE | 2020-08-27 22:00 | NUR ---
Patient will be admitted to care of DR. SCHULTE. Admited to ICU. Will go to room 5. Belongings list completed. Report given to Josefina GREENE. All covid precautions in place. Pt transported with RT JUAN RAMON and EMT SUSANA.
--- NOTE | 2020-08-27 22:30 | NUR ---
RECEIVED PT FROM RESCUE INSTRUCTOR. PT ETT TO VENT. A/C PC 80%,R:18, PEEP:16, RESPIRATION EVEN UNLABORED. CHEST EXPANSION SYMMETRICAL, KOBY SOUNDS. DIMINISHED UPON AUSCULTATION. ORAL MUCOSA PINK AND MOIST. SKIN WARM AND DRY. BLISTERS OBSERVED ON THE BUTTOCKS. PT HAS ACCESSES ON THE RIGHT UPPER ARM PICC LINE INFUSING FENTANYL @ 27 MCG/HR, PROPOFOL @ 50 MCG/KG/MIN, 1/2 NS @ 60MLS/HR, LEFT THUMB 22G SALINE LOCKED. ALL LINES ASYMPTOMATIC, PATENT AND INTACT. SHETH CATH TO GRAVITY. OGT IN PLACE. BED IN LOWEST POSITION, SIDE RAILS UP, ALL SAFETY MEASURES IN PLACE. ISOLATION PRECAUTION MAINTAINED.
[2020-08-27 22:45] VITALS: BP 131/103
[2020-08-28] VITALS (28 sets, daily range): BP systolic 97–189; BP diastolic 46–123
--- NOTE | 2020-08-28 | NUR ---
RECEIVED PATIENT IN SUPINE POSITION , ETT TO VENT WITH FIO2 85% PEEP 12 , SEDATED WHT PROPOFOL , OG FEEDING WITH NEPRO AT 40 ML/HR, IV DRIP: FENTANYL 2 MCG/KG/HR, PROPOFOL 40 MCG/KG/MIN, HEPARIN 1400 UNIT/HR, 1/2 NS AT 60 ML/HR, ALL IV MEDICATION INFUSING AT ANDRY PICC LINE. SHETH CATHETER IN PLACE , DRAINING TO GRAVITY. WILL CONTINUE TO MONITOR.
--- NOTE | 2020-08-28 00:10 | NUR ---
TOLD GIOVANNI TO CALL TAMARA TO AUTHORIZE HER ONE OF THE WOOL HAT FINISHER BUT SHE ASKED IF THERE IS ANY OTHER WAY TO PUT HER NAME ON THE SHEET WITHOUT CONTACTING THE NEXT OF KIN. ORTHOPEDIC SURGEON AWARE.
--- NOTE | 2020-08-28 00:10 | NUR ---
GIOVANNI ([phone]) CALLED AND SHE CLAIMED THAT SHE IS PT'S ONLY CHILD. SHE ASKED FOR UPDATE WITH REGARDS TO THE PT. FACE SHEET CHECKED AND HER NAME WAS NOT LISTED THE NEXT OF KIN/ PERSON TO NOTIFY. EXPLAINED TO HER THAT WE CANNOT DISCLOSE ANY INFORMATION IF THE NAME IS NOT LISTED ON THE FACE SHEET UNLESS THE NOK/PTN WILL AUTHORIZE US TO GIVE INFORMATION TO A SPECIFIC PERSON. NO INFORMATION GIVEN TO GIOVANNI PER HIPAA PURPOSES.
[2020-08-28] MEDS: PROPOFOL 1000 MG/100 ML PREMIX 100 ML IV PRN ×6 (03:24→22:09)
[2020-08-28] MEDS: fentaNYL citrate 1 MG in NACL 0.9% 80 ML IV PRN (03:29)
--- NOTE | 2020-08-28 04:00 | NUR ---
MORNING CARE PROVIDED. TURNED AND REPOSITIONED PT. WILL CONTINUE TO MONITOR.
[2020-08-28] MEDS: ALBUMIN HUMAN 25% 100 ML IV SCH (04:30)
[2020-08-28] MEDS ORDERED: PIPERACILLIN/TAZOBACTAM 2.25 GM VIAL IV ONE (05:11)
[2020-08-28] MEDS: PIPERACILLIN/TAZOBACTAM 2.25 GM in DEXTROSE 5% 50 ML IV SCH ×3 (06:12→22:07)
[2020-08-28 06:30] LABS: BASOPHILS % (AUTO) 0.2 % (0.0-2.0); EOSINOPHILS % (AUTO) 0.2 % (0.0-4.0); HEMOGLOBIN 9.9 g/dL (12.0-18.0); LYMPHOCYTES # (AUTO) 0.6 K/uL (2.0-11.5); MEAN CORPUSCULAR HEMOGLOBIN 26 pg (27-31); MEAN CORPUSCULAR HGB CONC 32 g/dL (33-37); MEAN CORPUSCULAR VOLUME 81.8 fL (80-94); MONOCYTES # (AUTO) 0.8 K/uL (0.8-1.0); MONOCYTES % (AUTO) 4.9 % (1.7-9.3); NEUTROPHILS % (AUTO) 90.7 % (42.2-75.2); PLATELET COUNT (AUTO) 217 K/uL (140-450); RED BLOOD CELL COUNT(AUTO) 3.79 MIL/uL (4.20-6.10); RED CELL DISTRIBUTION WIDTH 14.5 % (11.6-13.7); WHITE BLOOD COUNT (AUTO) 15.5 K/uL (4.8-10.8)
[2020-08-28 06:36] LABS: ANION GAP 16.5 (8-16); ASPARTATE AMINOTRANSFERASE 96 U/L (15-37); CARBON DIOXIDE 24.2 mmol/L (21-32); CHLORIDE 109 mmol/L (98-107); CREATININE 2.9 mg/dL (0.6-1.3); GLUCOSE 205 mg/dL (74-106); MAGNESIUM 3.5 mg/dL (1.8-2.4); POTASSIUM 4.7 mmol/L (3.5-5.1); SODIUM SERUM 145 mmol/L (136-145); TOTAL BILIRUBIN 0.6 mg/dL (0.0-1.0)
--- NOTE | 2020-08-28 06:49 | NUR ---
SPOKE TO TAMARA PT'S . SHE IS NOT AUTHORIZING GIOVANNI ONE OF THE CONTACT LIST. SHE SAID DO NOT GIVE ANY INFORMATION TO GIOVANNI. IF SOMEONE CALLS IN THE UNIT, A CODE WILL BE ASK. CODE 1997 PROVIDED BY SOPHIA. UPDATED ABOUT PT'S CONDITION. ALL QUESTIONS ANSWERED.
--- NOTE | 2020-08-28 07:20 | NUR ---
RECEIVED ON A VIASYS HECTOR VENTILATOR PLUGGED INTO RED OUTLET TOLERATING WELL WITHOUT ADVERSE REACTIONS NOTED TO AN ENDOTRACHEAL TUBE #7.5 SECURED AT 23cm WITH AN ANCHOR FAST CUFF PRESSURE CHECKED NOTED AMBU BAG AT BEDSIDE LOC SEDATED STABLE GOOD CHEST RISE AND AERATION THROUGHOUT BILATERAL LUNG LIANG AIRWAY PATENT OROPHARYNGEAL SUCTION FOR COPIOUS THICK YELLOW TO HAZY WITH BLOOD TINGE SECRETIONS
[2020-08-28 07:28] LABS: UREA NITROGEN, BLOOD 89 mg/dL (7-18)
[2020-08-28] MEDS: BLOOD GLUCOSE MONITORING 1 DEV DEV FS SCH ×4 (07:30→21:00)
--- NOTE | 2020-08-28 07:30 | NUR ---
RECEIVED PT WITH FENTANYL DOSE 27 MCG/HR, ADJUSTED TO CORRECT DOSE OF FENTANYL 0.5 MCG/KG/HR.
--- NOTE | 2020-08-28 07:40 | NUR ---
LAB CALLED, PTT 60.8, PER PROTOCOL, NO CHANGE. WILL CONT TO ASSESS
--- NOTE | 2020-08-28 07:45 | NUR ---
PAGED DR WASHBURN ABOUT CRITICAL LAB: BUN 89, AWAITING CALL BACK
--- NOTE | 2020-08-28 08:00 | NUR ---
RECEIVED BEDSIDE REPORT FROM CO OP NURSE, RASS -3, PT IS ETT TO VENT AC P/C FIO2 80%, RATE 18, PEEP 16, SATURATING @ 100%. S1S2 NOTED UPON AUSCULTATION, PT HAS PT HAS ANDRY PICC LINE RUNNING PROPOFOL 30 MCG/KG/MIN, FENTANYL 27 MCG/HR, AND HEPARIN 1400 UNITS/HR, AND 0.045% NS AT 60 ML/HR, ASYMPTOMATIC AND PATENT. LT HAND 22g PERIPHERAL IV, SALINE LOCK, FLUSHED,ASYMPTOMATIC AND PATENT. BOWEL SOUNDS ACTIVE IN ALL 4 QUADRANTS. OG-TUBE TO FEED, NEPRO AT 40 ML/HR WITH FWF: 100 Q8HR. RESIDUAL: 0ML. SHETH CATH IN PLACE DRAINING TO GRAVITY. SKIN WARM DRY, BLISTERING WOUND TO BUTTOCKS AREA. SAFETY MEASURES IN PLACE, BED LOW AND LOCKED, SIDE RAILS UP, CALL LIGHT WITHIN REACH, WILL CONTINUE TO MONITOR. Addendum: 08/28/20 at 2039 by Koki Kaur RN RN RECEIVED PT WITH FENTANYL DOSE 27 MCG/HR, ADJUSTED TO CORRECT DOSE OF FENTANYL 0.5 MCG/KG/HR.
[2020-08-28] MEDS: INSULIN LISPRO SLIDING SCALE 100 UNITS/ML VIAL SUBQ PRN ×4 (08:36→23:40)
[2020-08-28] MEDS: ASCORBIC ACID 500 MG TAB PO SCH ×2 (09:04→22:06)
[2020-08-28] MEDS: DOCUSATE SODIUM 100 MG GELCAP PO SCH (09:04)
[2020-08-28] MEDS: DEXAMETHASONE 4 MG/ML VIAL IVP SCH (09:04)
[2020-08-28] MEDS: SODIUM ZIRCONIUM CYCLOSILICATE 10 GM POWD.PACK PO SCH ×2 (09:15→14:45)
--- NOTE | 2020-08-28 10:00 | NUR ---
NO S/S OF DISTRESS NOTED. AFEBRILE. WILL CONT TO MONITOR CLOSELY.
--- NOTE | 2020-08-28 11:50 | NUR ---
DR ZENON ALAMO ON THE UNIT, UPDATED ON PTs CONDITION. AWARE OF LAB RESULTS.
--- NOTE | 2020-08-28 12:55 | NUR ---
PER TADEO/RN DR. SINHA ROUNDING DECREASED FIO2 TO 70% KEEP SETTINGS THE SAME GOOD CHEST RISE ENDOTRACHEAL SUCTION FOR MODERATE THIN YELLOW SECRETINS OROPHARYNGEAL SUCTION FOR LARGE THICK YELLOW SECRETIONS AIRWAY PATENT
--- NOTE | 2020-08-28 13:48 | NUR ---
08/28/20 RD INITIAL ASSESSMENT COMPLETED PLEASE REFER TO NUTRITION ASSESSMENT UNDER CARE ACTIVITY FOR ESTIMATED NUTRITIONAL NEEDS. 1. CONTINUE NEPRO @ 40 ML/HR X 24 HR --THIS WILL PROVIDE 1728 KCAL AND 78 G OF PROTEIN MEETING 100% OF ESTIMATED KCAL NEEDS AND 100% OF ESTIMATED PROTEIN NEEDS 2. FWF PER MD 3. CONSULT RD PRN 4. RD TO FOLLOW-UP 2-3 DAYS, HIGH RISK GEMA RUELAS RD
--- NOTE | 2020-08-28 14:00 | NUR ---
PTs CONDITION REMAINS UNCHANGED. SAFETY MEASURES IN PLACE, WILL CONT TO MONITOR.
[2020-08-28] MEDS: NACL 0.45% 1,000 ML IV SCH ×2 (14:54→22:07)
--- NOTE | 2020-08-28 16:00 | NUR ---
ROUTINE CARE GIVEN, SHETH CARE, VAP ORAL CARE, CHG BATH, NEW LINEN AND GOWN. PT TOLERATED IT WELL. SAFETY MEASURES IN PLACE, BED LOW AND LOCKED, SIDE RAILS UP, CALL LIGHT WITHIN REACH, WILL CONT TO MONITOR.
--- NOTE | 2020-08-28 16:44 | NUR ---
SEDATED STABLE GOOD CHEST RISE ENDOTRACHEAL SUCTION FOR MODERATE THICK YELLOW SECRETIONS OROPHARYNGEAL SUCTION FOR LARGE THICK YELLOW SECRETIONS AIRWAY ANCHOR FAST REMOVED RE-TAPED AT 26cm
--- NOTE | 2020-08-28 18:00 | NUR ---
PTs CONDITION REMAINS UNCHANGED. SAFETY MEASURES IN PLACE, WILL CONT TO MONITOR.
[2020-08-28] MEDS: hePARIN / DEXT 5% PREMIX 250 ML IV SCH (19:41)
[2020-08-28] MEDS: FAMOTIDINE 20 MG/2 ML VIAL IV SCH (22:06)
--- NOTE | 2020-08-28 22:25 | NUR ---
BLOOD SUGAR CHECKED AND 4 UNITS OF HUMALOG INSULIN GIVEN ORDERED.
[2020-08-29] VITALS (29 sets, daily range): BP systolic 88–163; BP diastolic 57–95
[2020-08-29] MEDS: PROPOFOL 1000 MG/100 ML PREMIX 100 ML IV PRN ×6 (01:38→22:42)
[2020-08-29] MEDS: fentaNYL citrate 1 MG in NACL 0.9% 80 ML IV PRN ×2 (01:45→20:12)
--- NOTE | 2020-08-29 04:56 | NUR ---
TURN AND REPOSITION Q2H TO KEEP SKIN CLEAN AND DRY, SKIN CARE AND ORAL CARE GIVEN, PATIENT TOLERATED VENT SETTING.
[2020-08-29] MEDS: PIPERACILLIN/TAZOBACTAM 2.25 GM in DEXTROSE 5% 50 ML IV SCH ×3 (05:00→20:07)
[2020-08-29 06:12] LABS: BASOPHILS % (AUTO) 0.2 % (0.0-2.0); EOSINOPHILS # (AUTO) 0.3 K/uL (0-0.4); EOSINOPHILS % (AUTO) 1.4 % (0.0-4.0); HEMATOCRIT 35.4 % (36-52); HEMOGLOBIN 11.4 g/dL (12.0-18.0); LYMPHOCYTES % (AUTO) 4.8 % (20.5-51.1); MEAN CORPUSCULAR HEMOGLOBIN 26 pg (27-31); MEAN CORPUSCULAR HGB CONC 32 g/dL (33-37); MEAN CORPUSCULAR VOLUME 81.3 fL (80-94); MONOCYTES # (AUTO) 0.4 K/uL (0.8-1.0); NEUTROPHILS # (AUTO) 18.2 K/uL (1.8-7.7); NEUTROPHILS % (AUTO) 91.6 % (42.2-75.2); PLATELET COUNT (AUTO) 225 K/uL (140-450); RED BLOOD CELL COUNT(AUTO) 4.35 MIL/uL (4.20-6.10); RED CELL DISTRIBUTION WIDTH 14.5 % (11.6-13.7); WHITE BLOOD COUNT (AUTO) 19.9 K/uL (4.8-10.8)
[2020-08-29 06:28] LABS: ALBUMIN 2.2 g/dL (3.4-5.0); ANION GAP 16.2 (8-16); ASPARTATE AMINOTRANSFERASE 75 U/L (15-37); CARBON DIOXIDE 24.6 mmol/L (21-32); CHLORIDE 107 mmol/L (98-107); CREATININE 2.1 mg/dL (0.6-1.3); GLUCOSE 222 mg/dL (74-106); MAGNESIUM 3.2 mg/dL (1.8-2.4); POTASSIUM 3.8 mmol/L (3.5-5.1); SODIUM SERUM 144 mmol/L (136-145); TOTAL BILIRUBIN 0.6 mg/dL (0.0-1.0)
[2020-08-29 06:42] LABS: UREA NITROGEN, BLOOD 68 mg/dL (7-18)
--- NOTE | 2020-08-29 07:20 | NUR ---
RECEIVED REPORT FROM RESEARCH DIETITIAN NURSE FOR CONTINUITY OF CARE. PT IN BED, SUPINE POSITION, HOB ELEVATED. RASS-3, FLACC 0, NO SOB, NO APPARENT DISTRESS. ETT TO VENT: AC/PC FIO2 85% R 18 PEEP 12. ABD SOFT, NON-DISTENDED, NON-TENDER. WITH ANDRY PICC, RUNNING PROPOFOL 40MCG, FENTANYL 0.5MCG, HEPARIN DRIP 1400UNITS/HR, IVF 1/2NS 60CC/HR. SHETH INTACT AND PATENT. OGT TO TUBE FEEDING. SAFETY PRECAUTIONS IN PLACE. ISOLATION PRECAUTION OBSERVED. WILL CONT TO MONITOR.
[2020-08-29] MEDS: BLOOD GLUCOSE MONITORING 1 DEV DEV FS SCH ×4 (07:51→21:00)
--- NOTE | 2020-08-29 08:00 | NUR ---
TEMP 101.0, TYLENOL GIVEN ORDERED. COOLING MEASURES RENDERED
--- NOTE | 2020-08-29 08:40 | NUR ---
DUE MORNING MEDS GIVEN. ORAL CARE AND SHETH CARE DONE. TURNED AND REPOSITIONED PT
[2020-08-29] MEDS: ACETAMINOPHEN 325 MG TAB PO PRN (08:45)
[2020-08-29] MEDS: DOCUSATE SODIUM 100 MG GELCAP PO SCH (09:00)
[2020-08-29] MEDS: ASCORBIC ACID 500 MG TAB PO SCH ×2 (09:00→22:40)
[2020-08-29] MEDS: DEXAMETHASONE 4 MG/ML VIAL IVP SCH (09:00)
--- NOTE | 2020-08-29 12:00 | NUR ---
TEMP 99.8, WILL CONTINUE COOLING MEASURES
[2020-08-29] MEDS: INSULIN LISPRO SLIDING SCALE 100 UNITS/ML VIAL SUBQ PRN ×3 (12:13→22:34)
--- NOTE | 2020-08-29 14:00 | NUR ---
SEEN BY DR SINHA. NO NEW ORDERS
--- NOTE | 2020-08-29 15:20 | NUR ---
RE-TAPED ETT @26CM AT THE TEETH, TO SECURE TUBE.
--- NOTE | 2020-08-29 16:00 | NUR ---
TEMP 98.7, NO APPARENT DISTRESS, FLACC 0.
[2020-08-29] MEDS: FAMOTIDINE 20 MG/2 ML VIAL IV SCH (20:07)
[2020-08-30] VITALS (31 sets, daily range): BP systolic 87–152; BP diastolic 54–99
--- NOTE | 2020-08-30 01:49 | NUR ---
PATIENT HAD A LARGE BM , CHANGED ALL LINENS AND GOWN, GOOD SKIN CARE AND ORAL CARE GIVEN, SUCTION A LOT OF MILKY SECRETION , HOLD GT FEEDING FOR NOW AND O2 SAT DROP TO 60'S , AND BACK TO 70'S AFTER SUCTION, FIO2 100% , CALLED RT, WILL CONTINUE TO CLOSE MONITOR.
--- NOTE | 2020-08-30 03:13 | NUR ---
PT DESAT LOW 60s PT WAS REPOSITIONED AND Sx HE ALSO HAD THICK YELLOW SECRETIONS PEEP WAS TITRATED TO 16 IT WAS PREV AND SPO2 IS SITTING MID 70s PT WAS RECEIVED ON PEEP [address] ENCINAS IS THEATRICAL AGENT AND WAS PAGED TO INFORM HIM OF CHANGES
--- NOTE | 2020-08-30 03:21 | NUR ---
PATIENT HAS DIFFICULTY BREATHING, FIO2 100% , PEEP 12 , O2 SAT IS BETWEEN 60'S AND 70'S, RT INCREASE PEEP TO 14 , WILL CONTINUE TO MONITOR.
--- NOTE | 2020-08-30 03:38 | NUR ---
PATIENT IS STILL AGONAL GASP BREATH, WILL CLOSE MONITOR.
[2020-08-30] MEDS: BLOOD GLUCOSE MONITORING 1 DEV DEV FS SCH ×4 (05:44→21:00)
[2020-08-30] MEDS: PIPERACILLIN/TAZOBACTAM 2.25 GM in DEXTROSE 5% 50 ML IV SCH ×3 (05:51→21:15)
[2020-08-30 06:08] LABS: HEMATOCRIT 35.6 % (36-52); HEMOGLOBIN 11.2 g/dL (12.0-18.0); MEAN CORPUSCULAR HEMOGLOBIN 26 pg (27-31); MEAN CORPUSCULAR HGB CONC 31 g/dL (33-37); MEAN CORPUSCULAR VOLUME 82.4 fL (80-94); PLATELET COUNT (AUTO) 217 K/uL (140-450); RED BLOOD CELL COUNT(AUTO) 4.32 MIL/uL (4.20-6.10); RED CELL DISTRIBUTION WIDTH 15.2 % (11.6-13.7)
[2020-08-30] MEDS: INSULIN LISPRO SLIDING SCALE 100 UNITS/ML VIAL SUBQ PRN ×4 (06:13→23:25)
[2020-08-30] MEDS: hePARIN / DEXT 5% PREMIX 250 ML IV SCH (06:32)
[2020-08-30] MEDS: PROPOFOL 1000 MG/100 ML PREMIX 100 ML IV PRN ×4 (06:38→21:17)
[2020-08-30 06:46] LABS: EOSINOPHILS % (MANUAL) 1 % (0-4); LYMPHOCYTES % (MANUAL) 2 % (20-46); MONOCYTES % (MANUAL) 2 % (5-12); WHITE BLOOD COUNT (AUTO) 25.2 K/uL (4.8-10.8)
--- NOTE | 2020-08-30 07:00 | NUR ---
AGONAL GASPING NOTED, LOW B/P. STARTED LEVOPHED DRIP PER MD ORDER.
--- NOTE | 2020-08-30 08:00 | NUR ---
RECEIVED BEDSIDE REPORT FROM STRAW BALER NURSE, RASS -3, PT IS ETT TO VENT AC P/C FIO2 100%, RATE 18, PEEP 14, SATURATING @ 88%. AGONAL BREATHING NOTED, S1S2 NOTED UPON AUSCULTATION, PT HAS PT HAS ANDRY PICC LINE RUNNING PROPOFOL 30 MCG/KG/MIN, FENTANYL 0.5 MCG/KG/HR, AND HEPARIN 1400 UNITS/HR, AND 0.045% NS AT 60 ML/HR, ASYMPTOMATIC AND PATENT. LT HAND 22g PERIPHERAL IV, SALINE LOCK, FLUSHED,ASYMPTOMATIC AND PATENT. BOWEL SOUNDS ACTIVE IN ALL 4 QUADRANTS. OG-TUBE IN PLACE. PER STRAW BALER, FEEDING HELD AT THIS TIME. RESIDUAL: 0ML. SHETH CATH IN PLACE DRAINING TO GRAVITY. SKIN WARM DRY, BLISTERING WOUND TO BUTTOCKS AREA. SAFETY MEASURES IN PLACE, BED LOW AND LOCKED, SIDE RAILS UP, CALL LIGHT WITHIN REACH, WILL CONTINUE TO MONITOR.
[2020-08-30 08:41] LABS: ANION GAP 16.7 (8-16); CARBON DIOXIDE 23.4 mmol/L (21-32); CHLORIDE 107 mmol/L (98-107); CREATININE 2.2 mg/dL (0.6-1.3); GLUCOSE 163 mg/dL (74-106); POTASSIUM 4.1 mmol/L (3.5-5.1); SODIUM SERUM 143 mmol/L (136-145)
[2020-08-30 08:50] LABS: UREA NITROGEN, BLOOD 68 mg/dL (7-18)
[2020-08-30] MEDS: DEXAMETHASONE 4 MG/ML VIAL IVP SCH (09:14)
[2020-08-30] MEDS: DOCUSATE 100 MG/10 ML UDC GT SCH (09:14)
[2020-08-30] MEDS: ASCORBIC ACID 500 MG TAB PO SCH ×2 (09:14→21:15)
[2020-08-30] MEDS: ACETAMINOPHEN 325 MG TAB PO PRN (09:15)
--- NOTE | 2020-08-30 09:15 | NUR ---
PTs TEMP 100.6F, ADMINISTERED TYLENOL PER MD ORDER, STILL AGONAL BREATHING, WILL CONT TO ASSESS. Addendum: 08/30/20 at 1516 by Koki Kaur RN RN REMOVED BLANKETS AND SOCKS
--- NOTE | 2020-08-30 09:18 | NUR ---
PTT 56.0. PER PROTOCOL, NO CHANGE IN HEPARIN DRIP.
--- NOTE | 2020-08-30 09:45 | NUR ---
PTs LATEST TEMP 99.3, BLANKETS STILL OFF, WILL CONT TO ASSESS.
--- NOTE | 2020-08-30 10:30 | NUR ---
DR SINHA ON THE UNIT. PER , ORDER NAHUN [id number]. Addendum: 08/30/20 at 1510 by Koki Kaur RN RN PER DR SINHA, FEEDING HELD DURING PRONING.
[2020-08-30] MEDS: NACL 0.45% 1,000 ML IV SCH (11:11)
--- NOTE | 2020-08-30 11:33 | NUR ---
CALLED DR SINHA AND EXPLAINED THAT RT IS UNCOMFORTABLE WITH PRONING BECAUSE THE PT's ET TUBE IS ONLY SECURED BY TAPE, WE RAN OUT OF ANCHOR FAST. PER DR SINHA, IT IS OKAY NOT TO PRONE AT THIS MOMENT.
--- NOTE | 2020-08-30 11:45 | NUR ---
DISCHARGE PLANNING: THIS IS A 75 Y/O MALE PATIENT BIBA FROM HOME DUE TO DIFFICULTY BREATHING AND FLU LIKE SYMPTOMS. PAST MEDICAL HISTORY INCLUDE HTN, DM, BPH. INITIAL DIAGNOSIS OF COVID PNEUMONIA, SEPSIS. CURRENT LABS INCLUDE WBC 25.2, H/H 11.2/35.6, NA/K 143/4.1, BUN/CREA 68/2.2, APTT 56, D DIMER >5000. RAPID COVID POSITIVE. ORALLY INTUBATED TO VENT, FIO2 100%, PEEP 16, O2 SAT 92%. SEDATED WITH PROPOFOL, FENTANYL. ON HEPARIN DRIP. ON ZOSYN, DECADRON. SEEN BY PULMO - MARLIN VENT SUPPORT, NAHUN. DC PLAN PENDING ON PATIENT'S RESPONSE TO TREATMENT. Addendum: 09/01/20 at 1249 by Juany Fuentes REMAINS ORALLY INTUBATED TO VENT FIO2 70%, PEEP 15, O2 SAT 94%. SEDATED WITH PROPOFOL, FENTANYL. ON HEPARIN DRIP, APTT 58.8. PER NEPHRO - HIGH RISK FOR WORSENING BRYAN AND FREIGHT CLERK, BUN/CREA 90/2.7.
--- NOTE | 2020-08-30 12:00 | NUR ---
PTs LATEST TEMP 99.2, BLANKETS AND SOCKS STILL REMOVED, WILL CONT TO ASSESS
--- NOTE | 2020-08-30 14:15 | NUR ---
WOUND CARE NURSE AT BEDSIDE, WOUND CARE GIVEN.
[2020-08-30] MEDS: fentaNYL citrate 1 MG in NACL 0.9% 80 ML IV PRN (14:34)
--- NOTE | 2020-08-30 15:00 | NUR ---
WOUND CARE EVALUATION NOTE: PT. ADMITTED WITH LOW MISHA SCALE AT RISK, COVID POSITIVE. SKIN ASSESSMENT DONE WITH PRIMARY RN COVID RELATED SKIN FAILURE TO RIGHT AND LEFT INNER RIGHT ND LEFT BUTTOCKS, MULTIPLE BLISTERS WITH SKIN INTACT, SKIN COLOR DARK PURPLE, POSSIBLE FROM HYPOXIA POC DISCUSSED WITH PRIMARY RN AND WILL CONTINUE TO FOLLOW PRESSURE INJURY PREVENTION INTERVENTIONS. RECOMMENDATIONS: -APPLY VERSATEL DRESSING TO RIGHT AND LEFT INNER BUTTOCKS CHANGE Q3 DAYS AND PRN IF SOILING -APPLY FOAM DRESSING TO SACRALCOCCYX CHANGE Q3 DAYS PREVENTION -TURN AND REPOSITION PATIENT Q 2H -ASSESS AND MONITOR SKIN CONDITION DURING POSITION CHANGE -OFFLOAD BILATERAL HEELS BY PLACING PILLOWS UNDER CALVES AT ALL TIMES, UNLESS OTHERWISE CONTRAINDICATED -PRESSURE REDISTRIBUTION BY PLACING PILLOWS AND OFFLOADING SACRALCOCCYX -KEEP SKIN CLEAN AND DRY AT ALL TIMES.
--- NOTE | 2020-08-30 15:28 | NUR ---
DR ROJAS ON UNIT, UPDATED ABOUT PTs CONDITION
--- NOTE | 2020-08-30 16:00 | NUR ---
PTs AGONAL BREATHING HAS LESSENED. WILL CONT TO MONITOR CLOSELY Addendum: 08/30/20 at 1942 by Koki Kaur RN RN INCREASED FEEDING TO 20ML/HR, 0 RESIDUAL. Addendum: 08/30/20 at 1943 by Koki Kaur RN RN WRONG TIME, STARTED FEEDING AT 10 ML/HR, 0 RESIDUAL
[2020-08-30] MEDS ORDERED: FOAM DRESSING TP SCH (17:10)
--- NOTE | 2020-08-30 18:00 | NUR ---
ROUTINE CARE GIVEN, CHG BATH, SHETH CARE, VAP ORAL CARE, CLEAN LINENS. REPOSITIONED PT. SMEAR OF RECTAL BLEEDING NOTED. NO S/S OF DISTRESS NOTED. SAFETY MEASURES IN PLACE, WILL CONT TO MONITOR.
--- NOTE | 2020-08-30 18:00 | NUR ---
INCREASED FEEDING TO 20ML/HR, 0 RESIDUAL.
--- NOTE | 2020-08-30 19:41 | NUR ---
RECEIVED PATIENT IN SUPINE POSITION , ETT TO VENT WITH FIO2 100%, PEEP 16, SLOW GASPING BREATH, OG TUBE FEEDING WITH NEPRO AT 20ML/HR, ALL IV MEDICATION INFUSING AT ANDRY PICC LINE , SITE IS CLEAR, IV DRIP: HEPARIN 1400 UNIT/HR, PROPOFOL 30 MCG/KG/MIN FENTANYL 0.5 MCG/KG/HR IV 1/2 NS AT 60 ML/HR , SHETH CATH IN PLACE , DRAINING TO GRAVITY, WILL CONTINUE THE CARE .
[2020-08-30] MEDS: FAMOTIDINE 20 MG/2 ML VIAL IV SCH (21:15)
--- NOTE | 2020-08-30 23:30 | NUR ---
2310 retaped et tube to right side of lip. lowered fio2 to 60% will monitor sats
[2020-08-31] VITALS (27 sets, daily range): BP systolic 108–162; BP diastolic 67–98
--- NOTE | 2020-08-31 00:24 | NUR ---
0020 PRONED PATIENT. TUBE IS ON RIGHT SIDE. PATIENT IS CURRENTLY ON 100% FIO2. WILL TITRATE
--- NOTE | 2020-08-31 01:45 | NUR ---
PATIENT HAD A DIARRHEA LOT WHEN PUTTING IN PRONE POSITION , RECTAL TUBE PUT IN , PATIENT 'S O2 SAT UP TO 96 AFTER PRONE POSITION. GOOD SKIN CARE AND ORAL CARE GIVEN. SUCTION A LOT YELLOWISH SECRETION.
[2020-08-31] MEDS: PROPOFOL 1000 MG/100 ML PREMIX 100 ML IV PRN ×6 (03:33→22:19)
[2020-08-31] MEDS: hePARIN / DEXT 5% PREMIX 250 ML IV SCH ×2 (03:42→22:23)
[2020-08-31] MEDS: fentaNYL citrate 1 MG in NACL 0.9% 80 ML IV PRN ×2 (03:46→11:20)
[2020-08-31] MEDS: PIPERACILLIN/TAZOBACTAM 2.25 GM in DEXTROSE 5% 50 ML IV SCH ×3 (03:47→20:36)
[2020-08-31] MEDS: NACL 0.45% 1,000 ML IV SCH ×2 (03:48→20:41)
[2020-08-31 05:17] LABS: ANION GAP 15.9 (8-16); CARBON DIOXIDE 24.8 mmol/L (21-32); CHLORIDE 105 mmol/L (98-107); CREATININE 2.8 mg/dL (0.6-1.3); GLUCOSE 190 mg/dL (74-106); POTASSIUM 4.7 mmol/L (3.5-5.1); SODIUM SERUM 141 mmol/L (136-145)
[2020-08-31 05:24] LABS: UREA NITROGEN, BLOOD 79 mg/dL (7-18)
[2020-08-31] MEDS: INSULIN LISPRO SLIDING SCALE 100 UNITS/ML VIAL SUBQ PRN ×4 (06:04→22:18)
--- NOTE | 2020-08-31 06:25 | NUR ---
RECEIVED A CALL FROM LAB, PTT 58.8 , NO CHANGES FOR HEPARIN DRIP 1400 UNITS /HR. NO S/S OF BLEEDING AT THIS TIME. PATIENT TOLERATED PRONE POSITION , O2 SAT GO UP TO 94% , BETTER THAN SUPINE POSITION.
[2020-08-31] MEDS: BLOOD GLUCOSE MONITORING 1 DEV DEV FS SCH ×4 (06:32→21:00)
[2020-08-31 06:39] LABS: HEMATOCRIT 33.7 % (36-52); HEMOGLOBIN 10.6 g/dL (12.0-18.0); MEAN CORPUSCULAR HEMOGLOBIN 26 pg (27-31); MEAN CORPUSCULAR HGB CONC 31 g/dL (33-37); MEAN CORPUSCULAR VOLUME 82.1 fL (80-94); PLATELET COUNT (AUTO) 244 K/uL (140-450); RED BLOOD CELL COUNT(AUTO) 4.11 MIL/uL (4.20-6.10); RED CELL DISTRIBUTION WIDTH 15.4 % (11.6-13.7)
--- NOTE | 2020-08-31 07:20 | NUR ---
RECEIVED WINDOW-SIDE REPORT FROM CANCER REGISTRY COORDINATOR NURSE ELVIN FOR CONTINUITY OF CARE, PATIENT IS LYING ON PRONE REVERSE TRENDE[place]BURG POSITION COMFORTABLY, FLACC 0. PATIENT IS SEDATED RASS -3, DRY WEIGHT 104 KG. RESPIRATION EVEN AND UNLABORED ON ETT TO VENT, FIO2 100%, RATE 20, PEEP 16, LUNGS SOUND COURSE ON AUSCULTATION. IV ON ANDRY PICC RUNNING HEPARIN DRIP AT 1,400 UNIT/HR, 0.45 NS AT 60 ML/HR, PROPOFOL AT 40 MCG/KG/MIN, AND FENTANYL 0.5 MCG/KG/HR, L THUMB 22G, CLEAN AND INTACT, SALINE LOCKED. SKIN WARM TO TOUCH, BLISTER ON SACRAL PER REPORT,COVERED WITH HEART-SHAPED OPTIFOAM, REDNESS ON ARMPITS NOTED. PATIENT IS INCONTINENT, SHETH AND RECTAL TUBE IN PLACE, DRAINING WITH GRAVITY. OGT IN PLACE, NOT RUNNING AT THIS TIME. OBSTETRICS NURSE IN PLACE. BED IN LOW POSITION, AND BED LOCKED. ENHANCED DROPLET PRECAUTION AND FALL RISK PROTOCOL IN PLACE.
--- NOTE | 2020-08-31 07:28 | NUR ---
RECEIVED ON A VIASYS HECTOR VENTILATOR PLUGGED INTO RED OUTLET TOLERATING WELL WITHOUT ADVERSE REACTIONS NOTED TO AN ENDOTRACHEAL TUBE #7.5 SECURED AT 26cm TEETH/GUM LINE WITH A WELCON PRE-MADE TRACH TAPE CUFF PRESSURE CHECKED NOTED AMBU BAG AT BEDSIDE LOC SEDATED PRONE POSITION RESTING COMFORTABLY GODD CHEST RISE AND AERATION THROUGHOUT BILATERAL LUNG LIANG AIRWAY PATENT
[2020-08-31 08:20] LABS: WHITE BLOOD COUNT (AUTO) 30.3 K/uL (4.8-10.8)
[2020-08-31 08:21] LABS: EOSINOPHILS % (MANUAL) 1 % (0-4); LYMPHOCYTES % (MANUAL) 3 % (20-46); MONOCYTES % (MANUAL) 3 % (5-12)
--- NOTE | 2020-08-31 08:25 | NUR ---
RECEIVED CRITICAL FOR WBC 30.3, PAGELane COSTA, GRANT OFFICER MD FOR IS DR BAI, AWAITING FOR MD TO RETURN CALL.
[2020-08-31] MEDS: DEXAMETHASONE 4 MG/ML VIAL IVP SCH (08:55)
[2020-08-31] MEDS: DOCUSATE 100 MG/10 ML UDC GT SCH (08:55)
[2020-08-31] MEDS: ASCORBIC ACID 500 MG TAB PO SCH ×2 (08:55→20:36)
--- NOTE | 2020-08-31 09:34 | NUR ---
CHECKED OGT RESIDUAL AND RECEIVED ZERO, ADMINISTERED SCHEDULED MEDS VIA OGT AND IVP, FLUSHED BEFORE AND AFTER MEDS. PROVIDED HYGIENE CARE, CHG BATH, REPOSITIONED PATIENT'S ARMS, PATIENT TOLERATED FAIR. RESPIRATION EVEN AND UNLABORED ON ETT TO VENT FIO2 100%, SPO2 AT 93%. FLACC 0. SAFETY MEASURES IN PLACE. BED IN LOW POSITION, HOB ELEVATED 3 DEGREE, REVERSE [place]DE[place]BURG, AND BED LOCKED.
--- NOTE | 2020-08-31 12:09 | NUR ---
CHECKED 1130 BLOOD SUGAR, RECORDED 197, 2 UNITS GIVEN FOR COVERAGE, PER SLIDING SCALE, NO S/S OF HYPOGLYCEMIA, WILL CONTINUE TO MONITOR.
--- NOTE | 2020-08-31 12:17 | NUR ---
RECEIVED A CALL FROM MAREK AND UPDATED MAREK WITH PATIENT'S CURRENT CONDITION, AND MAREK WAS AWARE.
--- NOTE | 2020-08-31 13:09 | NUR ---
DR RANDOLPH IS ROUNDING ON PATIENT.
--- NOTE | 2020-08-31 13:33 | NUR ---
1300 ZOSYN GIVEN, NO S/S, WILL CONTINUE TO MONITOR.
--- NOTE | 2020-08-31 13:44 | NUR ---
STABLE SEDATED PRONE POSITION GOOD CHEST RISE ENDOTRACHEAL SUCTION FOR COPIOUS THI YELLOW SECRETIONS AIRWAY PATENT DR. GIANNA SINHA ROUNDING EARLIER AND NOTED ON MD PROGRESS NOTES AT 1119 PEEP CHANGED TO [id number] SATURATION 97% ON FIO2 OF 80% PEEP [id number] TITRATED FIO2 TO 70% TERRY/RN NOTIFIED
--- NOTE | 2020-08-31 14:52 | NUR ---
08/31/20 RD FOLLOW UP COMPLETED. PLEASE REFER TO NUTRITION ASSESSMENT UNDER CARE ACTIVITY FOR ESTIMATED NUTRITIONAL NEEDS. TUBE FEEDING VOLUME, LAST 24 HRS THRU 07/31: 160 ML THIS PROVIDED 288 KCALS AND 13 GM PRO (INADEQUATE) PT IN PRONE POSITION, GT CLAMPED, UNABLE TO FEED PT WHIL PRONE. TOTAL VOLUME OF NEPRO ORDER IS 960 ML/DAY. MAY CONSIDER INCREASING TF RATE WHEN PT IS SUPINE TOLERATED TO MEET (OR GET CLOSER TO) TOTAL DAILY VOLUME, NEPRO @ 120 ML X 8 HRS WILL PROVIDE 960 ML/DAY WELL FREE WATER FLUSH PER MD CONSULT RD PRN RD TO FOLLOW-UP 2-3 DAYS, HIGH RISK TADEO ANN RD
--- NOTE | 2020-08-31 16:45 | NUR ---
BLOOD SUGAR TAKEN, 190, 2 UNITS GIVEN FOR COVERAGE PER SLIDING SCALE.
--- NOTE | 2020-08-31 17:34 | NUR ---
DR ROJAS IS ROUNDING ON PATIENT, NOTIFIED WBC 30.3 AND ON ZOSYN, DR ROJAS WAS AWARE.
--- NOTE | 2020-08-31 17:45 | NUR ---
PT TURNED TO SUPINE POSITION WITH NO ISSUES. ETT SECURE AND PATENT.
--- NOTE | 2020-08-31 17:50 | NUR ---
ASSISTED RT WITH TURNED, PROVIDED HYGIENE AND SHETH CARE, CHANGED LINEN AND GOWN, WILL CONTINUE TO MONITOR.
--- NOTE | 2020-08-31 17:55 | NUR ---
1645 BLOOD SUGAR TAKEN, 149, NO COVERAGE PER SLIDING SCALE, PATIENT CLEANED AND TURNED, SHETH CARE PROVIDED, LINEN AND GOWNED CHANGED, WILL CONTINUE TO MONITOR. Addendum: 08/31/20 at 1802 by Alexys Galaviz RN RN CHARTED ON WRONG PATIENT
--- NOTE | 2020-08-31 19:36 | NUR ---
ENDORSED PATIENT TO HATCH BOSS NURSE ELVIN FOR CONTINUITY OF CARE, SAFETY MEASURES IN PLACE.
--- NOTE | 2020-08-31 20:00 | NUR ---
RECEIVED PATIENT IN SUPINE POSITION , ETT TO VENT AND SEDATED, FIO2 80% PEEP 16 , OG FEEDING WITH NEPRO AT 20 ML/HR, IV DRIP : HEPARIN 1400 UNIT/HR, PROPOFOL 40 MCG/KG/MIN, FENTANYL 0.5 MCG/KG/HR, IVF 1/2 NS AT 60 ML/HR, SHETH CATHETER IN PLACE AND DRAINING TO GRAVITY , RECTAL TUBE IN PLACE. WILL CONTINUE TO MONITOR.
--- NOTE | 2020-08-31 20:07 | NUR ---
RECEIVED PATIENT FROM AM SHIFT. PATIENT WAS SEEN AND ASSESSED. FOUND PATIENT IN SUPINE POSITIONED. PATIENT IS INTUBATED WITH ETT SIZE 7.5 AND SECURED WITH ANCHOR-FAST @ 26cm. PATIENT IS ON VENT SETTINGS: AC/PC RR 20, PIP 24, PEEP 15, FiO2 100% WITH SPO2 OF 99%. AMBU BAG AT BEDSIDE. VENT IS PLUGGED IN RED OUTLET. ALARMS SET AND AUDIBLE TO ENVIRONMENT. SUCTIONED SMALL AMOUNT OF YELLOW THICK SECRETIONS FROM ETT. AIRWAY IS PATENT. AUSCULTATION REVEALS BILATERAL COARSE BREATH SOUNDS ON BOTH UPPER AND LOWER LOBES. PATIENT IS IN NO APPARENT RESPIRATORY DISTRESS AT THIS TIME. WILL CONTINUE TO MONITOR PATIENT.
--- NOTE | 2020-08-31 20:10 | NUR ---
TITRATED FiO2 TO 90%. SPO2 98%. PT TOLERATING WELL. RN NOTIFIED. WILL CONTINUE TO MONITOR.
[2020-08-31] MEDS: FAMOTIDINE 20 MG/2 ML VIAL IV SCH (20:35)
--- NOTE | 2020-08-31 23:41 | NUR ---
BLOOD SUGAR 198 , 2 UNIT OF HUMALOG SQ GIVEN ORDERED.
[2020-09-01] VITALS (28 sets, daily range): BP systolic 119–184; BP diastolic 69–102
--- NOTE | 2020-09-01 00:49 | NUR ---
TITRATED FiO2 TO 70%. SPO2 98%. PT TOLERATING WELL. RN NOTIFIED. WILL CONTINUE TO MONITOR.
--- NOTE | 2020-09-01 02:00 | NUR ---
PLACED PATIENT IN PRONE POSITION. PATIENT TOLERATED PROCEDURE WELL. SUCTION SMALL AMOUNT OF WHITE/YELLOW THICK SECRETIONS FROM ETT. ETT SECURED AND AIRWAY IS PATENT. BILATERAL BREATH SOUNDS ON AUSCULTATION. PATIENT IS IN NO RESPIRATORY DISTRESS AT THIS TIME. RNs AT BEDSIDE. WILL CONTINUE TO MONITOR PATIENT.
[2020-09-01] MEDS: PROPOFOL 1000 MG/100 ML PREMIX 100 ML IV PRN ×5 (02:22→21:13)
[2020-09-01] MEDS: fentaNYL citrate 1 MG in NACL 0.9% 80 ML IV PRN (02:25)
--- NOTE | 2020-09-01 04:00 | NUR ---
TURN PATIENT TO PRONE POSITION WITH 3 RN AND 1 RN RATE AND COST ANALYST, ORAL HYGENE AND SKIN CARE GIVEN.
[2020-09-01 05:24] LABS: HEMATOCRIT 36.5 % (36-52); HEMOGLOBIN 11.4 g/dL (12.0-18.0); MEAN CORPUSCULAR HEMOGLOBIN 26 pg (27-31); MEAN CORPUSCULAR HGB CONC 31 g/dL (33-37); MEAN CORPUSCULAR VOLUME 82.1 fL (80-94); PLATELET COUNT (AUTO) 249 K/uL (140-450); RED BLOOD CELL COUNT(AUTO) 4.44 MIL/uL (4.20-6.10); RED CELL DISTRIBUTION WIDTH 15.4 % (11.6-13.7)
[2020-09-01 05:33] LABS: ALBUMIN 1.8 g/dL (3.4-5.0); ANION GAP 18.3 (8-16); ASPARTATE AMINOTRANSFERASE 40 U/L (15-37); CARBON DIOXIDE 21.1 mmol/L (21-32); CHLORIDE 104 mmol/L (98-107); CREATININE 2.7 mg/dL (0.6-1.3); GLUCOSE 208 mg/dL (74-106); POTASSIUM 5.4 mmol/L (3.5-5.1); SODIUM SERUM 138 mmol/L (136-145); TOTAL BILIRUBIN 0.6 mg/dL (0.0-1.0)
--- NOTE | 2020-09-01 05:40 | NUR ---
THERE'S NO HEART RATE SHOW ON THE MONITOR, CHANGED ALL LEADS AND PADS , BP CUFF CHANGED NEW ONE , ABLE TO GET BP BACK BUT NOT HEART RATE, CHARGE NURSE AWARE . SHE TRIED TO FIX IT BUT NOT ABLE TO .
[2020-09-01] MEDS: PIPERACILLIN/TAZOBACTAM 2.25 GM in DEXTROSE 5% 50 ML IV SCH ×3 (05:44→20:37)
[2020-09-01] MEDS: BLOOD GLUCOSE MONITORING 1 DEV DEV FS SCH ×4 (05:44→21:11)
[2020-09-01] MEDS: INSULIN LISPRO SLIDING SCALE 100 UNITS/ML VIAL SUBQ PRN ×4 (05:45→21:11)
--- NOTE | 2020-09-01 06:13 | NUR ---
ABNORMAL LAB RESULTS REPORTED TO PRIMARY RN AT THIS TIME FOR FOLLOW UP WITH MD.
[2020-09-01 06:14] LABS: UREA NITROGEN, BLOOD 90 mg/dL (7-18)
[2020-09-01 06:16] LABS: WHITE BLOOD COUNT (AUTO) 28.3 K/uL (4.8-10.8)
--- NOTE | 2020-09-01 06:27 | NUR ---
WBC 28.3 TODAY AND WBC 30.3 YESTERDAY, TREND DOWN , BUN 90 , MD AWARE , WILL ENDORSE TO ONCOMING NURSE.
[2020-09-01 06:41] LABS: EOSINOPHILS % (MANUAL) 1 % (0-4); LYMPHOCYTES % (MANUAL) 3 % (20-46); MONOCYTES % (MANUAL) 4 % (5-12)
--- NOTE | 2020-09-01 06:57 | NUR ---
ALL SCANNER IN ICU NOT WORKING , CHARGE NURSE AWARE.
--- NOTE | 2020-09-01 07:15 | NUR ---
RECEIVED WINDOW-SIDE REPORT FROM PLASTIC PANEL INSTALLER NURSE FOR CONTINUITY OF CARE, PATIENT IS LYING ON PRONE REVERSE TRENDE[place]G POSITION COMFORTABLY, FLACC 0. PATIENT IS SEDATED RASS -3, DRY WEIGHT 104 KG. RESPIRATION EVEN AND UNLABORED ON ETT TO VENT, FIO2 70%, RATE 20, PEEP 15, LUNGS SOUND COARSE ON AUSCULTATION. IV ON ANDRY PICC RUNNING HEPARIN DRIP AT 1,400 UNIT/HR, 0.45 NS AT 60 ML/HR, PROPOFOL AT 40 MCG/KG/MIN, AND FENTANYL 0.5 MCG/KG/HR, L THUMB 22G, CLEAN AND INTACT, SALINE LOCKED. SKIN WARM TO TOUCH, BLISTER ON SACRAL, COVERED WITH HEART-SHAPED OPTIFOAM, REDNESS ON ARMPITS NOTED. PATIENT IS INCONTINENT, SHETH AND RECTAL TUBE IN PLACE, DRAINING WITH GRAVITY. OGT IN PLACE, NOT RUNNING AT THIS TIME. MOLD FILLER AND DRAINER IN PLACE. BED IN LOW POSITION, AND BED LOCKED. ENHANCED DROPLET PRECAUTION AND FALL RISK PROTOCOL IN PLACE.
[2020-09-01] MEDS: DOCUSATE 100 MG/10 ML UDC GT SCH (08:37)
[2020-09-01] MEDS: DEXAMETHASONE 4 MG/ML VIAL IVP SCH (08:37)
[2020-09-01] MEDS: ASCORBIC ACID 500 MG TAB PO SCH ×2 (08:37→20:39)
[2020-09-01] MEDS ORDERED: SODIUM ZIRCONIUM CYCLOSILICATE 10 GM POWD.PACK NG SCH (10:00)
--- NOTE | 2020-09-01 10:10 | NUR ---
ADMINISTERED LOKELMA 10 GRAMS PER MD ORDER, FLUSHED BEFORE AND AFTER MED. REPOSITIONED PATIENT'S ARMS, PATIENT LYING IN PRONE POSITION COMFORTABLY, FLACC. RESPIRATION EVEN AND SHALLOW ON ETT TO VENT, FIO2 AT 65%, RATE 20, PEEP 15, SPO2 94% AT THIS TIME. SAFETY MEASURE IN PLACE, REVERSE TRENDELENBURG, BED IN LOW POSITION, AND BED LOCKED.
--- NOTE | 2020-09-01 11:45 | NUR ---
CHECKED BLOOD SUGAR, 203, 4 UNITS GIVEN FOR COVERAGE, NO S/S OF HYPOGLYCEMIA, WILL CONTINUE TO MONITOR.
--- NOTE | 2020-09-01 15:12 | NUR ---
DOCUMENT VENTILATOR ON WRONG PATIENT
[2020-09-01] MEDS: hePARIN / DEXT 5% PREMIX 250 ML IV SCH (15:56)
--- NOTE | 2020-09-01 17:00 | NUR ---
PATIENT SUCCESSFULLY PLACED IN SUPINE POSITION WITHOUT INCIDENT ENDOTRACHEAL TUBE ADJUSTED TO LEFT SIDE
--- NOTE | 2020-09-01 17:00 | NUR ---
APPLIED VERSATEL SECURED WITH HEART SHAPE OPTIFOAM, WITH ASSIST FROM RT, WITH SUPINE PATIENT, PROVIDED HYGIENE CARE,ORAL CARE, SUCTIONING, USED PILLOWS TO OFFLOADED PRESSURE. SAFETY MEASURES IN PLACE. HOB ELEVATED 35 DEGREE, BED IN LOW POSITION AND BED LOCKED.
--- NOTE | 2020-09-01 17:24 | NUR ---
PATRICIA REYES IS ROUNDING ON PATIENT.
--- NOTE | 2020-09-01 19:06 | NUR ---
RECEIVED BEDSIDE REPORT FROM TERRY GREENE. PATIENT SEDATED RASS -3. ETT TO VENT AC/PC FIO2 70%, PEEP 15, RATE 20 SATURATING 93%. NO DISTRESS NOTED. DRY WEIGHT 244LB. SKIN IS WARM AND DRY. RIGHT UPPER ARM PICC LINE NOTED INFUSING HEPARIN AT 1400 UNITS/HR (14ML/HR), PROPOFOL 40MCG/KG/MIN, FENTANYL 0.5MCG/KG/HR AND 1/2NSAT 40CC/HR. OGTUBE NOTED. SHETH CATHETER DRAINING YELLOW URINE NOTED. RECTAL TUBE IN PLACE DRAINING TO GRAVITY. PLAN OF CARE UP TO DATE. ALL SAFETY MEASURES IN PLACE. BED IS AT LOW POSITION. CALL LIGHT WITHIN REACH. WILL CONTINUE TO MONITOR.
--- NOTE | 2020-09-01 20:26 | NUR ---
RECEIVED PATIENT FROM AM SHIFT. PATIENT WAS SEEN AND ASSESSED. FOUND PATIENT IN SUPINE POSITIONED. PATIENT IS INTUBATED WITH ETT SIZE 7.5 AND SECURED WITH ANCHOR-FAST @ 26cm. PATIENT IS ON VENT SETTINGS: AC/PC RR 20, PIP 24, PEEP 15, FiO2 55% WITH SPO2 OF 94%. AMBU BAG AT BEDSIDE. VENT IS PLUGGED IN RED OUTLET. ALARMS SET AND AUDIBLE TO ENVIRONMENT. SUCTIONED SMALL AMOUNT OF YELLOW THICK SECRETIONS FROM ETT. AIRWAY IS PATENT. AUSCULTATION REVEALS BILATERAL COARSE BREATH SOUNDS. PATIENT IS IN NO APPARENT RESPIRATORY DISTRESS AT THIS TIME. WILL CONTINUE TO MONITOR PATIENT.
[2020-09-01] MEDS: FAMOTIDINE 20 MG/2 ML VIAL IV SCH (20:38)
--- NOTE | 2020-09-01 20:40 | NUR ---
ALL SCHEDULED MEDS WERE GIVEN PER ORDER. NO ASE NOTED.WILL CONTINUE TO MONITOR
--- NOTE | 2020-09-01 21:15 | NUR ---
TITRATED PEEP FROM 15 cmH20 TO 14 cmH20. PT TOLERATING WELL. RN NOTIFIED. WILL CONTINUE TO MONITOR PT.
--- NOTE | 2020-09-01 21:41 | NUR ---
RECEIVED CRITICAL LAB VALUE PTT 98.5. FOLLOW PROTOCOL WHICH HOLD HEPARIN DRIP FOR AN HOUR THEN REDUCE BY 3 UNITS.
--- NOTE | 2020-09-01 22:41 | NUR ---
RESUME HEPARIN DRIP. HEPARIN DRIP IS RUNNING AT 1140UNITS/HR
--- NOTE | 2020-09-01 23:17 | NUR ---
PROVIDED ORAL CARE. PATIENT TOLERATED IT WELL
[2020-09-02] VITALS (44 sets, daily range): BP systolic 107–189; BP diastolic 6–90
--- NOTE | 2020-09-02 00:45 | NUR ---
PLACED PATIENT IN PRONE POSITION. RT AT BEDSIDE.
--- NOTE | 2020-09-02 02:09 | NUR ---
PATIENT BP 185/90 HR 89. NOTIFIED MD. PER MD ORDER CARDENE DRIP AND KEEP SYSTOLIC BELOW 170
[2020-09-02] MEDS ORDERED: NICARDIPINE HYDROCHLORIDE 25 MG in NACL 0.9% 240 ML IV SCH (02:10)
--- NOTE | 2020-09-02 04:00 | NUR ---
PROVIDED MORNING CARE.
[2020-09-02] MEDS ORDERED: NICARDIPINE HYDROCHLORIDE 2.5 MG/ML VIAL IV ONE (04:01)
[2020-09-02] MEDS: fentaNYL citrate 1 MG in NACL 0.9% 80 ML IV PRN (04:27)
[2020-09-02] MEDS: PROPOFOL 1000 MG/100 ML PREMIX 100 ML IV PRN ×5 (04:29→19:59)
[2020-09-02] MEDS: PIPERACILLIN/TAZOBACTAM 2.25 GM in DEXTROSE 5% 50 ML IV SCH ×3 (04:30→20:05)
[2020-09-02] MEDS: NACL 0.45% 1,000 ML IV SCH (06:19)
[2020-09-02 06:21] LABS: BASOPHILS # (AUTO) 0.1 K/uL (0.00-0.22); BASOPHILS % (AUTO) 0.3 % (0.0-2.0); EOSINOPHILS # (AUTO) 0.4 K/uL (0-0.4); EOSINOPHILS % (AUTO) 1.3 % (0.0-4.0); HEMATOCRIT 30.8 % (36-52); HEMOGLOBIN 9.8 g/dL (12.0-18.0); LYMPHOCYTES % (AUTO) 3.5 % (20.5-51.1); MEAN CORPUSCULAR HEMOGLOBIN 26 pg (27-31); MEAN CORPUSCULAR HGB CONC 32 g/dL (33-37); MONOCYTES # (AUTO) 1.4 K/uL (0.8-1.0); MONOCYTES % (AUTO) 4.9 % (1.7-9.3); NEUTROPHILS # (AUTO) 24.8 K/uL (1.8-7.7); PLATELET COUNT (AUTO) 216 K/uL (140-450); RED BLOOD CELL COUNT(AUTO) 3.76 MIL/uL (4.20-6.10); RED CELL DISTRIBUTION WIDTH 15.6 % (11.6-13.7)
[2020-09-02] MEDS: BLOOD GLUCOSE MONITORING 1 DEV DEV FS SCH ×4 (06:38→21:00)
[2020-09-02] MEDS: INSULIN LISPRO SLIDING SCALE 100 UNITS/ML VIAL SUBQ PRN ×4 (06:39→21:09)
--- NOTE | 2020-09-02 06:43 | NUR ---
RECEIVED CRITICAL LAB VALUE PTT >150. FOLLOW PROTOCOL WHICH HOLD HEPARIN DRIP FOR AN HOUR THEN REDUCE BY 3 UNITS.
[2020-09-02 07:05] LABS: WHITE BLOOD COUNT (AUTO) 27.6 K/uL (4.8-10.8)
--- NOTE | 2020-09-02 07:10 | NUR ---
RECEIVED REPORT FROM NIGHT RN FOR CONTINUITY OF CARE,PATIENT IS PRONE POSITION, BED REVERSE TRENDELENBURG, OFFLOAD PRESSURE WITH PILLOWS ON CHEST, ABDOMEN AND LEGS. PATIENT IS SEDATED RASS -3, FLACC 0, RESPIRATION EVEN, SHALLOW, [place],LUNGS SOUNDS DIMINISHED, ON ETT TO VENT, FIO2 60% RATE 20 PEEP 8, SPO2 91%. SKIN WARM TO TOUCH, BLISTERS ON BUTTOCKS, VERSATEL IN PLACE AND SECURED WITH OPTIFOAM. ANDRY PICC INFUSING HEPARIN 880 UNITS/ HR, 1/2 NS 60 ML/HR, FENTANYL 0.5 MCG/KG/HR, PROPOFOL 40 MCG/KG/MIN. SHETH IN PLACE, DRAINING YELLOW URINE WITH GRAVITY, YELLOW CLEAR SEDIMENT URINE IN BAG NOTED. RECTAL TUBE IN PLACE, BROWN LIQUID STOOL IN BAG NOTED. OGT IN PLACE, HELD FEEDING DUE TO PRONE AND ASPIRATION PRECAUTION. CAPILLARY REFILLED < 3 SECONDS, NO SIGNS OF INJURY. SAFETY MEASURES IN PLACE, STAIN WIPER IN PLACE, BED IN LOW POSITION, HOB ELEVATED 35 DEGREE, AND BED LOCKED. WILL CONTINUE TO MONITOR.
--- NOTE | 2020-09-02 07:27 | NUR ---
ENDORSED PATIENT TO DAY SHIFT NURSE AT BEDSIDE FOR CONTINUITY OF CARE
[2020-09-02 07:35] LABS: ANION GAP 17.3 (8-16); CARBON DIOXIDE 17.5 mmol/L (21-32); CHLORIDE 112 mmol/L (98-107); GLUCOSE 129 mg/dL (74-106); POTASSIUM 3.8 mmol/L (3.5-5.1); SODIUM SERUM 143 mmol/L (136-145)
--- NOTE | 2020-09-02 07:44 | NUR ---
PTT > 150 FROM LAST DRAW, PER RX PROTOCOL REDUCE THE 260 UNIT. POWDER MIXER NURSE HELD FOR AN HOUR. REDUCED DRIP FROM 1,140 UNIT TO 880 UNIT AND STARTED THE HEPARIN AT THIS TIME. WILL ORDER LAB DRAW IN 6 HOURS.
[2020-09-02 08:24] LABS: UREA NITROGEN, BLOOD 74 mg/dL (7-18)
[2020-09-02] MEDS: FOAM DRESSING TP SCH (09:00)
[2020-09-02] MEDS: ASCORBIC ACID 500 MG TAB PO SCH ×2 (09:00→20:05)
--- NOTE | 2020-09-02 09:57 | NUR ---
INCREASED IVF 1/2 NS FROM RATE OF 60 ML/MIN TO 70 ML/MIN PER MD ORDER.
[2020-09-02] MEDS: DEXAMETHASONE 4 MG/ML VIAL IVP SCH (09:59)
[2020-09-02] MEDS: DOCUSATE 100 MG/10 ML UDC GT SCH (09:59)
--- NOTE | 2020-09-02 10:21 | NUR ---
OGT RESIDUAL 0, FLUSHED BEFORE AND AFTER MED ADMINISTRATION, MEDS GIVEN PER MD ORDER, ANDRY PICC DOUBLE LUMEN INFUSING 1/2 NS AT 75 ML/MIN, FENTANYL 0.5 MCG/KG/HR, PROPOFOL 40 MCG/KG/MIN, AND HEPARIN 880 UNITS/HR. PATIENT IS REMAINS IN PRONE POSITION COMFORTABLY, REPOSITIONED ARMS, PATIENT TOLERATED FAIR, FLACC 0. RESPIRATION EVEN AND UNLABORED, ON ETT TO VENT AC/VC FIO2 60%, RATE 20, PEEP 8, SPO2 97%. RUBBER STAMPS AND DIES SUPERVISOR IN PLACE. BED IN LOW POSITION, REVERSE [place]DELENBURG, SAFETY MEASURES IN PLACE, WILL CONTINUE TO MONITOR.
--- NOTE | 2020-09-02 10:55 | NUR ---
DR SINHA IS ROUNDING ON PATIENT.
--- NOTE | 2020-09-02 11:45 | NUR ---
CHECKED BLOOD SUGAR, 160, COVERED WITH 2 UNITS PER MD SLIDING SCALE.
--- NOTE | 2020-09-02 12:27 | NUR ---
RECEIVED A CALL FROM PATIENT'S MAREK, UPDATED CURRENT CONDITION, MAREK WAS AWARE.
--- NOTE | 2020-09-02 16:30 | NUR ---
CHECKED BLOOD SUGAR, 160, COVERED 2 UNITS PER MD SLIDING SCALE.
--- NOTE | 2020-09-02 17:15 | NUR ---
REPOSITION PATIENT SUPINE, WITH ASSISTANCE, PROVIDED HYGIENE CARE, ORAL CARE, SHETH CARE, AND CHG BATH, PATIENT COMFORTABLE, OFFLOAD PRESSURE WITH PILLOWS, NO SIGNS OF DISTRESS, OPERATIONS CONTROLLER IN PLACE, ANDRY PICC CLEAN DRY AND INTACT, INFUSING HEPARIN 880 UNITS/HR, PROPOFOL AT 40 MCG/KG/MIN, FENTANYL 0.5 MCG/KG/HR, 1/2 NS 60 ML/MIN, SPO2 94%, STARTED OGT FEEDING, SAFETY MEASURES IN PLACE, BED IN LOW POSITION, WILL CONTINUE TO MONITOR
[2020-09-02] MEDS: hePARIN / DEXT 5% PREMIX 250 ML IV SCH (19:05)
--- NOTE | 2020-09-02 19:30 | NUR ---
REPORT RECEIVED FROM AM SHIFT RN FOR CONTINUITY OF CARE. PT ETT TO VENT. SEDATED, RASS -3. ON AC/VC MODE. FIO2 60%. RATE 20, PEEP 15. SINUS RHYTHM ON MONITOR. OGT TO FEEDING, 0 RESIDUALS NOTED. RECTAL TUBE IN PLACE. SHETH CATHETER IN PLACE. BLISTER NOTED TO BUTTOCKS. SKIN WARM AND DRY. HOB 30 DEGREES. BED LOCKED IN LOWEST POSITION. WILL CONTINUE TO MONITOR.
--- NOTE | 2020-09-02 20:01 | NUR ---
RECEIVED PATIENT FROM AM SHIFT. PATIENT WAS SEEN AND ASSESSED. FOUND PATIENT IN SUPINE POSITIONED. PATIENT IS INTUBATED WITH ETT SIZE 7.5 AND SECURED WITH ANCHOR-FAST @ 26cm. PATIENT IS ON VENT SETTINGS: AC/PC RR 20, PIP 24, PEEP 14, FiO2 60% WITH SPO2 OF 96%. AMBU BAG AT BEDSIDE. VENT IS PLUGGED IN RED OUTLET. ALARMS SET AND AUDIBLE TO ENVIRONMENT. SUCTIONED SMALL AMOUNT OF YELLOW THICK SECRETIONS FROM ETT. AIRWAY IS PATENT. AUSCULTATION REVEALS BILATERAL COARSE BREATH SOUNDS ON BOTH UPPER AND LOWER LOBES. PATIENT IS IN NO APPARENT RESPIRATORY DISTRESS AT THIS TIME. WILL CONTINUE TO MONITOR PATIENT.
[2020-09-02] MEDS: FAMOTIDINE 20 MG/2 ML VIAL IV SCH (20:05)
[2020-09-02] MEDS ORDERED: CRUSHER, PILL MC ONE (20:50)
--- NOTE | 2020-09-02 21:00 | NUR ---
BLOOD SUGAR 175, 2 UNITS OF HUMALOG GIVEN
--- NOTE | 2020-09-02 23:25 | NUR ---
LAB AT BEDSIDE
[2020-09-03] VITALS (65 sets, daily range): BP systolic 97–163; BP diastolic 55–83
[2020-09-03] MEDS: PROPOFOL 1000 MG/100 ML PREMIX 100 ML IV PRN ×5 (00:03→23:21)
--- NOTE | 2020-09-03 01:16 | NUR ---
PT SEDATED, RASS -3. RESPIRATIONS EVEN AND UNLABORED. CHEST RISE IS SYMMETRICAL. BED LOCKED IN LOWEST POSITION. SAFETY PRECAUTIONS IN PLACE. WILL CONTINUE TO MONITOR.
[2020-09-03] MEDS: fentaNYL citrate 1 MG in NACL 0.9% 80 ML IV PRN (01:49)
--- NOTE | 2020-09-03 02:30 | NUR ---
PT PLACED IN PRONE POSITION, OGT FEEDING HELD. WILL CONTINUE TO MONITOR.
--- NOTE | 2020-09-03 04:30 | NUR ---
PT CLEANED, ORAL CARE PROVIDED. PT REMAINS IN PRONE POSITION. SAFETY PRECAUTIONS IN PLACE. WILL CONTINUE TO MONITOR.
[2020-09-03] MEDS: PIPERACILLIN/TAZOBACTAM 2.25 GM in DEXTROSE 5% 50 ML IV SCH ×2 (04:50→13:57)
--- NOTE | 2020-09-03 06:30 | NUR ---
PT SEDATED, RASS -3. PT IN PRONE POSITION. RESPIRATIONS EVEN AND UNLABORED, CHEST RISE IS SYMMETRICAL. SAFTEY PRECAUTIONS IN PLACE. WILL CONTINUE TO MONITOR.
[2020-09-03 06:37] LABS: BASOPHILS # (AUTO) 0.2 K/uL (0.00-0.22); BASOPHILS % (AUTO) 0.6 % (0.0-2.0); EOSINOPHILS # (AUTO) 0.4 K/uL (0-0.4); EOSINOPHILS % (AUTO) 1.2 % (0.0-4.0); HEMATOCRIT 33.9 % (36-52); HEMOGLOBIN 10.7 g/dL (12.0-18.0); LYMPHOCYTES # (AUTO) 0.7 K/uL (2.0-11.5); LYMPHOCYTES % (AUTO) 2.3 % (20.5-51.1); MEAN CORPUSCULAR HEMOGLOBIN 26 pg (27-31); MEAN CORPUSCULAR HGB CONC 32 g/dL (33-37); MEAN CORPUSCULAR VOLUME 82.2 fL (80-94); MONOCYTES # (AUTO) 1.7 K/uL (0.8-1.0); MONOCYTES % (AUTO) 5.6 % (1.7-9.3); NEUTROPHILS # (AUTO) 26.9 K/uL (1.8-7.7); NEUTROPHILS % (AUTO) 90.3 % (42.2-75.2); PLATELET COUNT (AUTO) 250 K/uL (140-450); RED BLOOD CELL COUNT(AUTO) 4.12 MIL/uL (4.20-6.10); RED CELL DISTRIBUTION WIDTH 15.2 % (11.6-13.7)
--- NOTE | 2020-09-03 07:12 | NUR ---
REPORT GIVEN TO AM SHIFT RN FOR CONTINUITY OF CARE
[2020-09-03 07:17] LABS: ANION GAP 17.4 (8-16); CARBON DIOXIDE 22.7 mmol/L (21-32); CHLORIDE 106 mmol/L (98-107); CREATININE 2.4 mg/dL (0.6-1.3); GLUCOSE 238 mg/dL (74-106); POTASSIUM 5.1 mmol/L (3.5-5.1); SODIUM SERUM 141 mmol/L (136-145)
[2020-09-03 07:20] LABS: UREA NITROGEN, BLOOD 92 mg/dL (7-18)
[2020-09-03] MEDS: BLOOD GLUCOSE MONITORING 1 DEV DEV FS SCH ×4 (07:30→20:28)
--- NOTE | 2020-09-03 07:30 | NUR ---
report taken at bedside patient is prone at this time all drips noted heparin results pending patient is due to to be placed supine at 1430.
--- NOTE | 2020-09-03 07:30 | NUR ---
RECEIVED ON A VIASYS HECTOR PLUGGED ONTO RED OUTLET TOLERATING WELL WITHOUT ADVERSE REACTIONS NOTED TO AN ENDOTRACHEAL TUBE #7.5 SECURED AT 26CM WITH ANCHOR FAST CUFF PRESSURE CHECKED NOTED AMBU BAG AT BEDSIDE LOC SEDATED RESTING COMFORTABLY GOOD CHEST RISE ENDOTRACHEAL SUCTION FOR LARGE THICK YELLOW WITH BLOOD TINGE SECRETONS WITH MUCOID PLUGS AIRWAY PATENT
[2020-09-03 07:40] LABS: WHITE BLOOD COUNT (AUTO) 29.7 K/uL (4.8-10.8)
[2020-09-03] MEDS: DOCUSATE 100 MG/10 ML UDC GT SCH (09:00)
[2020-09-03] MEDS: DEXAMETHASONE 4 MG/ML VIAL IVP SCH (11:53)
[2020-09-03] MEDS: ASCORBIC ACID 500 MG TAB PO SCH ×2 (11:54→20:29)
--- NOTE | 2020-09-03 14:30 | NUR ---
SUDHA HALEY HHN Q6WA R AND Q4PRN SOB/WHEEZE
--- NOTE | 2020-09-03 14:30 | NUR ---
patient to be placed supine not enough staff at this time no acute changes noted in patients condition patient blood sugar taken as documented no coverage bs [id number] patient is npo while prone
[2020-09-03] MEDS ORDERED: SODIUM ZIRCONIUM CYCLOSILICATE 10 GM POWD.PACK NG SCH (16:00)
--- NOTE | 2020-09-03 16:01 | NUR ---
09/03/20 RD FOLLOW UP COMPLETED. PLEASE REFER TO NUTRITION ASSESSMENT UNDER CARE ACTIVITY FOR ESTIMATED NUTRITIONAL NEEDS. CONTINUE CURRENT TUBE FEEDING ORDERED, INCREASING TF RATE WHEN PT IS SUPINE TOLERATED FREE WATER FLUSH PER MD CONSULT RD PRN RD TO FOLLOW-UP 2-3 DAYS, HIGH RISK TADEO ANN RD
--- NOTE | 2020-09-03 16:55 | NUR ---
PATIENT SUCCESSFULLY PLACED IN SUPINE POSITION WITHOUT ADVERSE REACTIONS NOTED
--- NOTE | 2020-09-03 17:01 | NUR ---
GOOD CHEST RISE ENDOTRACHEAL SUCTION FOR LARGE SEMI THICK YELLOW SECRETONS AIRWAY PATENT
[2020-09-03] MEDS: NACL 0.45% 1,000 ML IV SCH ×3 (18:12→23:48)
[2020-09-03] MEDS ORDERED: ALBUTEROL SULFATE/IPRATROPIU 3 ML SOL IH PRN (18:25)
--- NOTE | 2020-09-03 18:39 | NUR ---
all orders carried out as documented DR Elena to bedside with question of new ordered medication explained delay patient prone at time ordered medication given as documented
--- NOTE | 2020-09-03 19:00 | NUR ---
HEPARIN DRIP INCREASED TO 1405UNITS/HR, 7,000 UNITS BOLUS GIVEN. PTT 25.
--- NOTE | 2020-09-03 19:30 | NUR ---
REPORT RECEIVED FROM AM SHIFT RN FOR CONTINUITY OF CARE. PT ETT TO VENT. SEDATED RASS -3. SINUS RHYTHM ON MONITOR. AC/PC MODE. FIO2 100%, RATE 20, PEEP 14. IV SITE ANDRY PICC, INFUSING HEPARIN 1405 UNITS/HR, 1/2 NS 75ML/HR, PROPOFOL 40 MCG/KG/MIN, FENTANYL 0.5MCG/KG/MIN. SKIN WARM AND DRY. OGT TO FEEDING. 0 RESIDUALS NOTED. SHETH CATHETER IN PLACE. RECTAL TUBE IN PLACE. DRY WEIGHT 110.3 KG. HOB 30 DEGREES. BED LOCKED IN LOWEST POSITION. WILL CONTINUE TO MONITOR.
[2020-09-03] MEDS: ALBUTEROL SULFATE/IPRATROPIU 3 ML SOL IH SCH (19:52)
[2020-09-03] MEDS: MEROPENEM 1,000 MG in NACL 0.9% 100 ML IV SCH (20:28)
[2020-09-03] MEDS: FAMOTIDINE 20 MG/2 ML VIAL IV SCH (20:28)
[2020-09-03] MEDS: INSULIN LISPRO SLIDING SCALE 100 UNITS/ML VIAL SUBQ PRN (21:02)
--- NOTE | 2020-09-03 21:30 | NUR ---
PT SUCTIONED, ORAL CARE PROVIDED. SAFETY PRECAUTIONS IN PLACE. WILL CONTINUE TO MONITOR.
[2020-09-03] MEDS: hePARIN / DEXT 5% PREMIX 250 ML IV SCH (22:37)
--- NOTE | 2020-09-03 23:04 | NUR ---
PTT 128.7 HELD HEPARIN.
[2020-09-04] VITALS (43 sets, daily range): BP systolic 104–157; BP diastolic 61–95
--- NOTE | 2020-09-04 00:04 | NUR ---
RESUMED HEPARIN DRIP. PTT 128.7. DECREASED TO 1145 UNITS/HR PER PROTOCOL.
[2020-09-04] MEDS ORDERED: HEPARIN PER PHARMACY MC PRN (01:45)
--- NOTE | 2020-09-04 02:10 | NUR ---
PT PLACED IN PRONE POSITION. FEEDING HELD. WILL CONTINUE TO MONITOR.
[2020-09-04] MEDS: fentaNYL citrate 1 MG in NACL 0.9% 80 ML IV PRN ×2 (03:38→20:19)
--- NOTE | 2020-09-04 04:25 | NUR ---
PT SEDATED, RASS -3. RESPIRATIONS EVEN AND UNLABORED, CHEST RISE IS SYMMETRICAL. WILL CONTINUE TO MONITOR.
--- NOTE | 2020-09-04 06:20 | NUR ---
PT SEDATED, RASS -3. RESPIRATIONS EVEN AND UNLABORED, CHEST RISE IS SYMMETRICAL. WILL CONTINUE TO MONITOR.
[2020-09-04 06:40] LABS: HEMATOCRIT 34.5 % (36-52); HEMOGLOBIN 10.9 g/dL (12.0-18.0); MEAN CORPUSCULAR HEMOGLOBIN 26 pg (27-31); MEAN CORPUSCULAR HGB CONC 32 g/dL (33-37); MEAN CORPUSCULAR VOLUME 82.7 fL (80-94); PLATELET COUNT (AUTO) 206 K/uL (140-450); RED BLOOD CELL COUNT(AUTO) 4.17 MIL/uL (4.20-6.10); RED CELL DISTRIBUTION WIDTH 16.1 % (11.6-13.7)
--- NOTE | 2020-09-04 07:11 | NUR ---
REPORT GIVEN TO AM SHIFT RN FOR CONTINUITY OF CARE
[2020-09-04] MEDS: PROPOFOL 1000 MG/100 ML PREMIX 100 ML IV PRN ×4 (07:13→20:20)
[2020-09-04] MEDS: ALBUTEROL SULFATE/IPRATROPIU 3 ML SOL IH SCH ×3 (07:38→20:05)
[2020-09-04 07:46] LABS: ALBUMIN 1.8 g/dL (3.4-5.0); ANION GAP 18.9 (8-16); ASPARTATE AMINOTRANSFERASE 29 U/L (15-37); CARBON DIOXIDE 20.4 mmol/L (21-32); CHLORIDE 108 mmol/L (98-107); CREATININE 2.3 mg/dL (0.6-1.3); GLUCOSE 122 mg/dL (74-106); POTASSIUM 5.3 mmol/L (3.5-5.1); SODIUM SERUM 142 mmol/L (136-145); TOTAL BILIRUBIN 0.6 mg/dL (0.0-1.0)
[2020-09-04 07:57] LABS: UREA NITROGEN, BLOOD 83 mg/dL (7-18)
[2020-09-04 08:02] LABS: WHITE BLOOD COUNT (AUTO) 31.1 K/uL (4.8-10.8)
[2020-09-04 08:03] LABS: LYMPHOCYTES % (MANUAL) 5 % (20-46); MONOCYTES % (MANUAL) 3 % (5-12)
[2020-09-04] MEDS ORDERED: SODIUM ZIRCONIUM CYCLOSILICATE 10 GM POWD.PACK PO SCH (08:14)
[2020-09-04] MEDS: BLOOD GLUCOSE MONITORING 1 DEV DEV FS SCH ×4 (08:26→21:00)
[2020-09-04] MEDS: DOCUSATE 100 MG/10 ML UDC GT SCH (09:00)
[2020-09-04] MEDS: DEXAMETHASONE 4 MG/ML VIAL IVP SCH (10:04)
[2020-09-04] MEDS: ASCORBIC ACID 500 MG TAB PO SCH ×2 (10:04→20:14)
[2020-09-04] MEDS: NACL 0.45% 1,000 ML IV SCH ×2 (10:05→20:20)
[2020-09-04] MEDS: MEROPENEM 1,000 MG in NACL 0.9% 100 ML IV SCH ×2 (10:06→20:14)
[2020-09-04] MEDS ORDERED: MAG SULF 2000 MG/WATER PREMIX 50 ML IV SCH (12:00)
--- NOTE | 2020-09-04 20:00 | NUR ---
RECEIVED PATIENT IN SUPINE POSITION , ETT TO VENT WITH FIO2 65% PEEP 14 , OG FEEDING WITH NEPRO AT 40 ML/HR, IV DRIP: HEPARIN 1145 UNIT/HR, PROPOFOL 40 MCG/KG/MIN FENTANYL 0.5 MCG/KG/HR, 1/2 NS AT 75 ML/HR, ALL IV INFUSING AT ANDRY PICC LINE , SITE IS CLEAR , SHETH CATHETER IN PLACE , DRAINING TO GRAVITY, RECTAL TUBE IN PLACE , WILL CONTINUE TO MONITOR.
[2020-09-04] MEDS: FAMOTIDINE 20 MG/2 ML VIAL IV SCH (20:14)
[2020-09-04] MEDS: hePARIN / DEXT 5% PREMIX 250 ML IV SCH (20:18)
[2020-09-04] MEDS: INSULIN LISPRO SLIDING SCALE 100 UNITS/ML VIAL SUBQ PRN (23:56)
[2020-09-05] VITALS (21 sets, daily range): BP systolic 113–181; BP diastolic 53–86
[2020-09-05] MEDS: PROPOFOL 1000 MG/100 ML PREMIX 100 ML IV PRN ×4 (02:01→20:39)
--- NOTE | 2020-09-05 03:00 | NUR ---
PUT PATIENT IN PRONE POSITION WITH ASSISTED BY 3 RN AND 1 RT.
[2020-09-05] MEDS: BLOOD GLUCOSE MONITORING 1 DEV DEV FS SCH ×4 (05:33→21:00)
[2020-09-05] MEDS: INSULIN LISPRO SLIDING SCALE 100 UNITS/ML VIAL SUBQ PRN ×2 (05:33→23:24)
[2020-09-05] MEDS: fentaNYL citrate 1 MG in NACL 0.9% 80 ML IV PRN ×2 (06:11→20:32)
[2020-09-05 06:39] LABS: HEMATOCRIT 32.1 % (36-52); HEMOGLOBIN 10.1 g/dL (12.0-18.0); MEAN CORPUSCULAR HEMOGLOBIN 26 pg (27-31); MEAN CORPUSCULAR HGB CONC 32 g/dL (33-37); MEAN CORPUSCULAR VOLUME 82.7 fL (80-94); PLATELET COUNT (AUTO) 232 K/uL (140-450); RED BLOOD CELL COUNT(AUTO) 3.88 MIL/uL (4.20-6.10)
[2020-09-05 06:48] LABS: ANION GAP 18.1 (8-16); CARBON DIOXIDE 20.4 mmol/L (21-32); CHLORIDE 107 mmol/L (98-107); CREATININE 2.3 mg/dL (0.6-1.3); GLUCOSE 149 mg/dL (74-106); POTASSIUM 5.5 mmol/L (3.5-5.1); SODIUM SERUM 140 mmol/L (136-145)
[2020-09-05 07:27] LABS: UREA NITROGEN, BLOOD 89 mg/dL (7-18)
[2020-09-05] MEDS: ALBUTEROL SULFATE/IPRATROPIU 3 ML SOL IH SCH ×3 (07:32→20:11)
[2020-09-05 07:39] LABS: WHITE BLOOD COUNT (AUTO) 29.8 K/uL (4.8-10.8)
[2020-09-05 07:40] LABS: LYMPHOCYTES % (MANUAL) 2 % (20-46); MONOCYTES % (MANUAL) 3 % (5-12)
[2020-09-05] MEDS ORDERED: FUROSEMIDE 100 MG/10 ML VIAL IV SCH (08:17)
[2020-09-05] MEDS ORDERED: SODIUM ZIRCONIUM CYCLOSILICATE 10 GM POWD.PACK PO SCH (08:18)
[2020-09-05] MEDS: SODIUM BICARBONATE 650 MG TAB PO SCH ×2 (09:00→23:27)
[2020-09-05] MEDS: DOCUSATE 100 MG/10 ML UDC GT SCH (09:00)
[2020-09-05] MEDS: ASCORBIC ACID 500 MG TAB PO SCH ×2 (09:00→20:31)
[2020-09-05] MEDS: MEROPENEM 1,000 MG in NACL 0.9% 100 ML IV SCH ×2 (09:28→20:32)
[2020-09-05] MEDS: DEXAMETHASONE 4 MG/ML VIAL IVP SCH (09:30)
--- NOTE | 2020-09-05 12:07 | NUR ---
DR. LORENZ CHANGED VENT SETTINGS CHANGED: PEEP 14 cmH2O TO [id number], WILL CONTINUE TO MONITOR.
--- NOTE | 2020-09-05 16:43 | NUR ---
PT PLACED INTO SUPINE POSITION, ETT IS SECURE WITH A A PATENT AIRWAY. VENT ALARMS ON AND FUNCTIONING. FIO2 TITRATED TO 50%. PT HAS BREAK DOWN ON FACE AND LIP ETT MOVED TO AVOID AREA.
--- NOTE | 2020-09-05 19:40 | NUR ---
RE CEIVED PATIENT IN SUPINE POSITION, ETT TO VENT WITH FIO2 65% PEEP14, SEDATED WITH RASS SCORE -3 , ALL IV MEDICATION INFUSING AT ANDRY PICC LINE, SITE IS CLEAR. IV: HEPARIN 1575 UNIT/,PROPOFOL 40 MCG/KG/MIN, FENTANYL 0.5 MCG/KG/HR, 1/2NS AT 75 ML/HR. OG FEEDING IS NOT ON YET. WILL START NEPRO AT 40 ML/HR, SHETH CATH IN PLACE , DRAINING TO GRAVITY, RECTAL TUBE IN PLACE. WILL CONTINUE TO MONITOR.
[2020-09-05] MEDS: FAMOTIDINE 20 MG/2 ML VIAL IV SCH (20:30)
[2020-09-05] MEDS: FOAM DRESSING TP SCH (21:00)
--- NOTE | 2020-09-05 23:15 | NUR ---
SPOKE TO DAUGHTER LUIS A OVER THE PHONE, UPDATE HER PATIENT'S CONDITION, SHE WANT PULMONOLGIST TO CALL HER TOMORROW , WILL ENDORSE TO AM NURSE.
[2020-09-06] VITALS (18 sets, daily range): BP systolic 82–186; BP diastolic 45–85
--- NOTE | 2020-09-06 00:30 | NUR ---
PICC LINE DRESSING AT ANDRY CHANGED UNDER STERILE TECHNIQUE.
[2020-09-06] MEDS: PROPOFOL 1000 MG/100 ML PREMIX 100 ML IV PRN ×5 (00:46→20:35)
--- NOTE | 2020-09-06 01:18 | NUR ---
RECEIVED A CALL FROM LAB - PTT 111.8 , WILL STOP FOR 1 HOUR THEN DECREASE 260 UNITS WHICH IS 1315 UNIT/ HR PER PROTOCOL . NO S/S OF BLEEDING AT THIS TIME.
[2020-09-06] MEDS ORDERED: NACL 0.9% 500 ML IV ONE (04:40)
--- NOTE | 2020-09-06 04:50 | NUR ---
PUT PATIENT IN PRONE POSITION WITH ASSISTED BY 3 RN AND 1 RT, BLEEDING FROM URETHRA NOTED , AND ABDOMEN IS DISTENDED, FLUSHED SHETH CATHETER WITH NS 30 ML AND NO RESISTANT , STILL NOT MUCH URINE ONLY 50 ML , CHARGE NURSE PAGED DR SCHULTE GROUP AND SPOKE TO MD, HOLD HEPARIN DRIP FOR 12 HR AND GIVE NS 500 ML BOLUS PER ORDER, WILL MONITOR THE URINE OUTPUT.
[2020-09-06] MEDS ORDERED: FUROSEMIDE 40 MG/4 ML VIAL IVP SCH (05:55)
[2020-09-06] MEDS ORDERED: FUROSEMIDE 40 MG/4 ML VIAL IVP ONE (05:55)
[2020-09-06 06:30] LABS: BASOPHILS # (AUTO) 0.1 K/uL (0.00-0.22); BASOPHILS % (AUTO) 0.3 % (0.0-2.0); EOSINOPHILS # (AUTO) 0.3 K/uL (0-0.4); EOSINOPHILS % (AUTO) 0.8 % (0.0-4.0); HEMATOCRIT 33.8 % (36-52); HEMOGLOBIN 10.5 g/dL (12.0-18.0); LYMPHOCYTES # (AUTO) 1.1 K/uL (2.0-11.5); LYMPHOCYTES % (AUTO) 3.6 % (20.5-51.1); MEAN CORPUSCULAR HEMOGLOBIN 26 pg (27-31); MEAN CORPUSCULAR HGB CONC 31 g/dL (33-37); MEAN CORPUSCULAR VOLUME 83.1 fL (80-94); MONOCYTES # (AUTO) 1.6 K/uL (0.8-1.0); MONOCYTES % (AUTO) 5.1 % (1.7-9.3); NEUTROPHILS # (AUTO) 27.6 K/uL (1.8-7.7); NEUTROPHILS % (AUTO) 90.2 % (42.2-75.2); PLATELET COUNT (AUTO) 227 K/uL (140-450); RED BLOOD CELL COUNT(AUTO) 4.07 MIL/uL (4.20-6.10); RED CELL DISTRIBUTION WIDTH 15.9 % (11.6-13.7)
[2020-09-06] MEDS: BLOOD GLUCOSE MONITORING 1 DEV DEV FS SCH ×3 (06:43→16:30)
[2020-09-06] MEDS: INSULIN LISPRO SLIDING SCALE 100 UNITS/ML VIAL SUBQ PRN (06:43)
[2020-09-06 06:46] LABS: MAGNESIUM 2.1 mg/dL (1.8-2.4)
[2020-09-06 06:49] LABS: ALBUMIN 1.8 g/dL (3.4-5.0); ANION GAP 20.2 (8-16); ASPARTATE AMINOTRANSFERASE 29 U/L (15-37); CARBON DIOXIDE 17.7 mmol/L (21-32); CHLORIDE 106 mmol/L (98-107); CREATININE 2.4 mg/dL (0.6-1.3); GLUCOSE 223 mg/dL (74-106); POTASSIUM 4.9 mmol/L (3.5-5.1); SODIUM SERUM 139 mmol/L (136-145); TOTAL BILIRUBIN 0.5 mg/dL (0.0-1.0)
[2020-09-06 06:56] LABS: UREA NITROGEN, BLOOD 97 mg/dL (7-18)
[2020-09-06 07:01] LABS: WHITE BLOOD COUNT (AUTO) 30.7 K/uL (4.8-10.8)
--- NOTE | 2020-09-06 07:02 | NUR ---
BUN 97 CR 2.4 WBC 30.7 GOT RESULT FROM LAB, ENDORSED TO AM NURSE.
--- NOTE | 2020-09-06 07:30 | NUR ---
REPORT TAKEN HEPARIN ON HOLD UNTIL 1640 DUE TO PTT RESULTS, CRITICAL LABS ACKNOWLEDGED PER PROTOCOL , TEMP 94.4 CHARGE NURSE MADE AWARE INTERVENTIONS STARTED PATIENT IS PRONE AT THIS TIME UNTIL 1700
[2020-09-06] MEDS: ALBUTEROL SULFATE/IPRATROPIU 3 ML SOL IH SCH ×3 (08:20→19:30)
[2020-09-06] MEDS: DOCUSATE 100 MG/10 ML UDC GT SCH (09:00)
[2020-09-06] MEDS: ASCORBIC ACID 500 MG TAB PO SCH ×2 (09:00→20:24)
[2020-09-06] MEDS: SODIUM BICARBONATE 650 MG TAB PO SCH ×2 (09:00→20:24)
[2020-09-06] MEDS: MEROPENEM 1,000 MG in NACL 0.9% 100 ML IV SCH ×2 (09:45→20:26)
[2020-09-06] MEDS: DEXAMETHASONE 4 MG/ML VIAL IVP SCH (09:47)
--- NOTE | 2020-09-06 10:36 | NUR ---
TEMP NOW 97.7 BLOOD PRESSURE 128/68 , PO MEDICATIONS DOCUMENTED NOT GIVEN IV MEDS GIVEN CHARTED
[2020-09-06] MEDS: hePARIN / DEXT 5% PREMIX 250 ML IV SCH (14:07)
--- NOTE | 2020-09-06 15:30 | NUR ---
09/06/20 RD FOLLOW UP COMPLETED PLEASE REFER TO NUTRITION ASSESSMENT UNDER CARE ACTIVITY FOR ESTIMATED NUTRITIONAL NEEDS. 1. RECOMMEND NEPRO 1.8 @ 80 ML/HR X 8 HOURS WITH PROSOURCE TID -THIS WILL PROVIDE 640 ML, 460 ML OF WATER, 1332 KCAL, 96 GM OF PROTEIN. MEETING 100% OF ESTIMATED KCAL AND PROTEIN NEEDS 2. RECOMMEND FREE WATER FLUSH OF [address] TO FOLLOW-UP 2-3 DAYS, HIGH RISK SOPHIE OLIVAS RD
--- NOTE | 2020-09-06 20:00 | NUR ---
RECEIVED PATIENT IN SUPINE POSITION , ETT TO VENT, OG TUBE FEEDING WITH NEPRO AT 40 ML/HR, SEDATED WITH PROPOFOL AND FENTANYL , LEVOPHED AT 10 MCG/MIN HEPARIN DRIP 1315 UNIT /HR. ALL IV INFUSING AT RIGHT ARM PICC LINE, SITE IS CLEAR, SHETH CATH IN PLACE AND DRAINING TO GRAVITY. WILL CONTINUE TO MONITOR.
[2020-09-06] MEDS: FAMOTIDINE 20 MG/2 ML VIAL IV SCH (20:23)
[2020-09-06] MEDS: fentaNYL citrate 1 MG in NACL 0.9% 80 ML IV PRN (20:40)
--- NOTE | 2020-09-06 21:32 | NUR ---
2107 CODE BLUE CALLED. CPR STARTED AND ACLS DRUGS GIVEN. PATIENT WAS BEING BAGGED WITH 100% FIO2. PT 2125
--- NOTE | 2020-09-06 22:03 | NUR ---
SPOKE TO [facility] -JOSÉ LUIS , CASE #[id number] DECLINE , INFORMED MAREK - , SHE STATES SHE IS GOING TO CALL ME BACK.
--- NOTE | 2020-09-06 22:07 | NUR ---
SPOKE TO [facility] AT 2139 , NOTIFIED - MAREK AT 2147
--- NOTE | 2020-09-06 22:10 | NUR ---
SPOKE TO ANNABELLA GONZALEZ OVER THE PHONE , HE STATES SOMEONE WILL CALL ME BACK.
--- NOTE | 2020-09-06 22:38 | NUR ---
SPOKE TO WALLY LLANOS -CARLOS AT 2220 OVER THE PHONE , RELEASE THE BODY
--- NOTE | 2020-09-06 22:47 | NUR ---
SPOKE TO DR ENCINAS TELEVISION SERVICER FOR DR SCHULTE OVER THE PHONE AND AWARE PATIENT .
--- NOTE | 2020-09-07 02:00 | NUR ---
SECURITY PICKED UP BODY WITH HIS BELONGINGS INCLUDING: CELL PHONE, CELL PHONE PAINTER HAND , PAJAMA AND SLIPPER.
== END 2020-09-06 21:26 | DRG 870 ==
LOC: MED 06:45 → MTU 11:23 → MIC 08-27 18:40
PROVIDERS: ADMIT Internal Medicine; ATTEND Internal Medicine
PROC: 5A09457 Assistance with Respiratory Ventilation, 24-96 Consecutive Hours, Continuous Positive Airway Pressure (ICD-10-PCS; 2020-08-24)
PROC: 0BH17EZ Insertion of Endotracheal Airway into Trachea, Via Natural or Artificial Opening (ICD-10-PCS; principal; 2020-08-25)
PROC: 5A1955Z Respiratory Ventilation, Greater than 96 Consecutive Hours (ICD-10-PCS; 2020-08-25)
PROC: 02HV33Z Insertion of Infusion Device into Superior Vena Cava, Percutaneous Approach (ICD-10-PCS; 2020-08-26)
PROC: 5A12012 Performance of Cardiac Output, Single, Manual (ICD-10-PCS; 2020-09-06)
DX: A41.9 Sepsis, unspecified organism (principal); U07.1 COVID-19; J12.82 Pneumonia due to coronavirus disease 2019; J80 Acute respiratory distress syndrome; N17.9 Acute kidney failure, unspecified; N40.0 Benign prostatic hyperplasia without lower urinary tract symptoms; E78.5 Hyperlipidemia, unspecified; E66.01 Morbid (severe) obesity due to excess calories; E11.22 Type 2 diabetes mellitus with diabetic chronic kidney disease; N18.9 Chronic kidney disease, unspecified; I12.9 Hypertensive chronic kidney disease with stage 1 through stage 4 chronic kidney disease, or unspecified chronic kidney disease; E87.5 Hyperkalemia; T38.3X5A Adverse effect of insulin and oral hypoglycemic [antidiabetic] drugs, initial encounter; L89.156 Pressure-induced deep tissue damage of sacral region; I46.9 Cardiac arrest, cause unspecified; Z79.84 Long term (current) use of oral hypoglycemic drugs; Z79.899 Other long term (current) drug therapy; Y92.89 Other specified places as the place of occurrence of the external cause; Z68.34 Body mass index [BMI] 34.0-34.9, adult
CPT/HCPCS: 36415; 36600; 71045; 76770; 80048; 80053; 81001; 82550; 82728; 82803; 83036; 83605; 83615; 83735; 83880; 84100; 84484; 85025; 85379; 85384; 85610; 85730; 86140; 86900; 86901; 87040; 87070; 87086; 87205; 87804; 92950; 93005; 94003; 94640; 99291; C9113; J0456; J0610; J0696; J1100; J1644; J1940; J2060; J2185; J2270; J2405; J2543; J2704; J3010; J3490; J7030; J7060; P9046